=== PATIENT | female | born 1985 | race Caucasian/White ===

== ENCOUNTER 2018-04-15 18:37 | Observation (INO) ==
[2018-04-15] MEDS ORDERED: ceFAZolin 1,000 MG in Water for inj. (sterile) 20 ML 10 ML IVP ONE (19:51)
--- NOTE | 2018-04-15 20:13 | Emergency Department Note ---
Disposition Disposition: Admitted As Inpatient Psych HPI - General Chief Complaint: ED Psychiatric Symptoms Stated Complaint: SI/Back/head/knee pain Time Seen by Provider: 04/15/18 19:46 Source: patient Mode of arrival: ambulatory Limitations: no limitations Nursing Notes Reviewed: Yes Vital Signs Reviewed: Yes - Related Data Home Medications Medication Instructions Recorded Confirmed Lisinopril 10 mg PO DAILY 02/13/18 02/22/18 Gabapentin [Neurontin] 800 mg PO TID 02/22/18 02/22/18 Ibuprofen 600 mg PO TID 02/22/18 02/22/18 Quetiapine Fumarate 200 mg PO HS 02/22/18 02/22/18 RisperiDONE 0.25 mg PO QID 02/22/18 02/22/18 Sertraline 150 mg ORAL RINSE DAILY 02/22/18 02/22/18 Previous Rx's Medication Instructions Recorded Amoxicillin 875 mg PO BID #14 tablet 02/22/18 metroNIDAZOLE [Metronidazole] 500 mg PO BID 7 Days #14 tablet 02/22/18 NALOXONE 4 MG Nasal [place] [Narcan] 4 mg NS AD #2 sprays 04/15/18 Allergies Allergy/AdvReac Type Severity Reaction Status Date / Time No Known Allergies Allergy Verified 02/22/18 04:20 Past Medical History - Past Medical History Medical history: Reports: hypertension, seizures Surgical history: Reports: non-contributory, , other Psychiatric history: Reports: anxiety, depression, prior suicide attempt, previous psychiatric hospitalization 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 PATIENT SEEN BY DR. ARRINGTON Vital Signs Temperature 98.2 F 04/15/18 19:27 Pulse Rate 86 04/15/18 19:27 Respiratory Rate 18 04/15/18 19:27 Blood Pressure 150/78 04/15/18 19:27 O2 Sat by Pulse Oximetry 96 04/15/18 19:27 Temperature 97.5 F L 04/16/18 03:55 Pulse Rate 62 04/16/18 03:55 Respiratory Rate 15 04/16/18 03:55 Blood Pressure 124/84 04/16/18 03:55 O2 Sat by Pulse Oximetry 98 04/16/18 02:51 Oxygen Delivery Oxygen Delivery Room Air Psych - Lab Data Result diagrams: 04/15/18 20:08 04/15/18 20:08 Lab Results 04/15/18 04/15/18 04/15/18 Range/Units 20:02 20:02 20:02 WBC (4.3-11.1) K/mcL RBC (3.82-4.97) M/mcL Hgb (11.5-15.4) g/dL Hct (35.3-44.9) % MCV (83.0-100.0) fL MCH (28.0-33.3) pg MCHC (31.6-35.5) g/dL RDW (11.5-14.5) % Plt Count (140-400) K/mcL MPV (9.4-12.4) fL Immature Gran % (0-4) % Seg Neutrophils % % Lymphocytes % % Monocytes % % Eosinophils % % Basophils % % Neutrophils # (1.6-8.9) K/mcL Lymphocytes # (0.6-4.6) K/mcL Monocytes # (0.0-1.3) K/mcL Eosinophils # (0.0-0.6) K/mcL Basophils # (0.0-0.2) K/mcL Sodium (136-145) mEq/L Potassium (3.5-5.1) mEq/L Chloride (98-107) mEq/L Carbon Dioxide (23-29) mEq/L BUN (6-20) mg/dL Creatinine (0.60-1.20) mg/dL Est GFR ( Amer) (> 60) Est GFR (Non-Af Amer) (> 60) BUN/Creatinine Ratio (6-26) Glucose (70-105) mg/dL Calculated Osmolality (280-300) Calcium (8.6-10.3) mg/dL Urine Color Dark Yellow (Yellow) Urine Clarity Hazy A (Clear) Urine pH 6.0 (5.0-8.0) pH Units Ur Specific [place] > 1.030 H (1.010-1.025) Urine Protein Trace (Neg-Trace) mg/dL Urine Glucose (UA) Normal (Normal) mg/dL Urine Ketones Negative (Negative) mg/dL Urine Blood Negative (Negative) Urine Nitrite Negative (Negative) Urine Bilirubin Moderate H (Negative) Urine Urobilinogen 2.0 H (Normal) mg/dL Ur Leukocyte Esterase Small H (Negative) Urine Microscopic RBC 0-3 (0-3) per hpf Urine Microscopic WBC 5-15 H (0-3) per hpf Ur Squamous Epith Cells Many H (None-Few) per lpf Urine Bacteria Few (None-Few) per hpf Hyaline Casts None Seen (None-Few) per lpf Urine Mucus Few (Few) Urine Test Negative (Negative) Salicylates (15.0-30.0) mg/dL Urine Opiates Screen Negative (Gsfbzm=185) ng/mL Acetaminophen (10-20) mcg/mL Ur Barbiturates Screen Negative (Jamytt=535) ng/mL Ur Phencyclidine Scrn Negative (Cutoff=25) ng/mL Ur Amphetamines Screen Positive H (Jdxlux=0774) ng/mL U Benzodiazepines Scrn Negative (Jcgdyd=227) ng/mL Urine Cocaine Screen Negative (Cutoff= 300) ng/mL U Marijuana (THC) Screen Negative (Cutoff = 50) ng/mL Ethyl Alcohol (Less than 10) mg/dL 04/15/18 04/15/18 Range/Units 20:08 20:08 WBC 11.1 (4.3-11.1) K/mcL RBC 4.40 (3.82-4.97) M/mcL Hgb 14.2 (11.5-15.4) g/dL Hct 40.5 (35.3-44.9) % MCV 92.0 (83.0-100.0) fL MCH 32.3 (28.0-33.3) pg MCHC 35.1 (31.6-35.5) g/dL RDW 12.8 (11.5-14.5) % Plt Count 132 L (140-400) K/mcL MPV 12.7 H (9.4-12.4) fL Immature Gran % 0.2 (0-4) % Seg Neutrophils % 50.4 % Lymphocytes % 41.3 % Monocytes % 5.3 % Eosinophils % 2.3 % Basophils % 0.5 % Neutrophils # 5.6 (1.6-8.9) K/mcL Lymphocytes # 4.6 (0.6-4.6) K/mcL Monocytes # 0.6 (0.0-1.3) K/mcL Eosinophils # 0.3 (0.0-0.6) K/mcL Basophils # 0.1 (0.0-0.2) K/mcL Sodium 140 (136-145) mEq/L Potassium 3.4 L (3.5-5.1) mEq/L Chloride 106 (98-107) mEq/L Carbon Dioxide 24 (23-29) mEq/L BUN 13 (6-20) mg/dL Creatinine 0.68 (0.60-1.20) mg/dL Est GFR ( Amer) > 60 (> 60) Est GFR (Non-Af Amer) > 60 (> 60) BUN/Creatinine Ratio 19 (6-26) Glucose 134 H (70-105) mg/dL Calculated Osmolality 292 (280-300) Calcium 9.7 (8.6-10.3) mg/dL Urine Color (Yellow) Urine Clarity (Clear) Urine pH (5.0-8.0) pH Units Ur Specific [place] (1.010-1.025) Urine Protein (Neg-Trace) mg/dL Urine Glucose (UA) (Normal) mg/dL Urine Ketones (Negative) mg/dL Urine Blood (Negative) Urine Nitrite (Negative) Urine Bilirubin (Negative) Urine Urobilinogen (Normal) mg/dL Ur Leukocyte Esterase (Negative) Urine Microscopic RBC (0-3) per hpf Urine Microscopic WBC (0-3) per hpf Ur Squamous Epith Cells (None-Few) per lpf Urine Bacteria (None-Few) per hpf Hyaline Casts (None-Few) per lpf Urine Mucus (Few) Urine Test (Negative) Salicylates < 2.5 L (15.0-30.0) mg/dL Urine Opiates Screen (Lprcil=139) ng/mL Acetaminophen < 10 L (10-20) mcg/mL Ur Barbiturates Screen (Gpeahb=025) ng/mL Ur Phencyclidine Scrn (Cutoff=25) ng/mL Ur Amphetamines Screen (Qqhywp=1507) ng/mL U Benzodiazepines Scrn (Zzqlcs=311) ng/mL Urine Cocaine Screen (Cutoff= 300) ng/mL U Marijuana (THC) Screen (Cutoff = 50) ng/mL Ethyl Alcohol < 10 (Less than 10) mg/dL Psychiatric Medical Clearance - Medical Clearance Checklist Medical History: No Social History Section defined Current Vitals: Last Vital Signs Temp 97.5 F L 04/16/18 03:55 Pulse 62 04/16/18 03:55 Resp 15 04/16/18 03:55 BP 124/84 04/16/18 03:55 Pulse Ox 98 04/16/18 02:51 Psychiatric Lab Panel: Drug Levels and Toxicity 04/15/18 04/15/18 20:02 20:08 Urine Opiates Screen Negative Acetaminophen < 10 L Ur Barbiturates Screen Negative Ur Phencyclidine Scrn Negative Ur Amphetamines Screen Positive H U Benzodiazepines Scrn Negative Urine Cocaine Screen Negative U Marijuana (THC) Screen Negative Ethyl Alcohol < 10 Abnormal Labs: Abnormal lab results Plt Count 132 K/mcL (140-400) L 04/15/18 20:08 MPV 12.7 fL (9.4-12.4) H 04/15/18 20:08 Potassium 3.4 mEq/L (3.5-5.1) L 04/15/18 20:08 Glucose 134 mg/dL (70-105) H 04/15/18 20:08 Urine Clarity Hazy (Clear) A 04/15/18 20:02 Ur Specific [place] > 1.030 (1.010-1.025) H 04/15/18 20:02 Urine Bilirubin Moderate (Negative) H 04/15/18 20:02 Urine Urobilinogen 2.0 mg/dL (Normal) H 04/15/18 20:02 Ur Leukocyte Esterase Small (Negative) H 04/15/18 20:02 Urine Microscopic WBC 5-15 per hpf (0-3) H 04/15/18 20:02 Ur Squamous Epith Cells Many per lpf (None-Few) H 04/15/18 20:02 Salicylates < 2.5 mg/dL (15.0-30.0) L 04/15/18 20:08 Acetaminophen < 10 mcg/mL (10-20) L 04/15/18 20:08 Ur Amphetamines Screen Positive ng/mL (Ecxidt=9036) H 04/15/18 20:02 Statement of Medical Clearance: I have evaluated the patient, reviewed diagnostic information, and certify that the patient's medical condition is sufficiently stable that transfer to the psychiatric unit does not pose a significant risk of deterioration.
[2018-04-15 20:26] LABS: Bilirubin,Urine Moderate (Negative); Blood,Urine Negative (Negative); Glucose,Urine (UA) Normal (Normal); Ketones,Urine Negative (Negative); Leukocyte Esterase,Urine Small (Negative); Nitrite,Urine Negative (Negative); Protein,Urine Trace mg/dL (Neg-Trace); Specific Gravity,Urine > 1.030 (1.010-1.025)
[2018-04-15 20:32] LABS: Bacteria,Urine Few per hpf (None-Few); Hyaline Casts,Urine None Seen per lpf (None-Few); RBC,Urine 0-3 per hpf (0-3); Squamous Epithelial Cell,Urine Many per lpf (None-Few)
[2018-04-15 20:34] LABS: Amphetamine Screen,Urine Positive ng/mL (Cutoff=1000); Barbiturate Screen,Urine Negative ng/mL (Cutoff=200); Benzodiazepines Screen,Urine Negative ng/mL (Cutoff=200); Cannabinoid Screen,Urine Negative ng/mL (Cutoff = 50); Cocaine Screen,Urine Negative ng/mL (Cutoff= 300); Opiate Screen,Urine Negative ng/mL (Cutoff=300); Phencyclidine Screen,Urine Negative ng/mL (Cutoff=25)
[2018-04-15 20:37] LABS: Basophils # 0.1 K/mcL (0.0-0.2); Basophils % 0.5 %; Eosinophils # 0.3 K/mcL (0.0-0.6); Eosinophils % 2.3 %; Hematocrit 40.5 % (35.3-44.9); Hemoglobin 14.2 g/dL (11.5-15.4); Immature Granulocytes % 0.2 % (0-4); Lymphocytes # 4.6 K/mcL (0.6-4.6); Lymphocytes % 41.3 %; Mean Corpuscular HGB Conc 35.1 g/dL (31.6-35.5); Mean Corpuscular Hemoglobin 32.3 pg (28.0-33.3); Mean Platelet Volume 12.7 fL (9.4-12.4); Monocytes # 0.6 K/mcL (0.0-1.3); Monocytes % 5.3 %; Neutrophils # 5.6 K/mcL (1.6-8.9); Platelet Count 132 K/mcL (140-400); Red Cell Distribution Width 12.8 % (11.5-14.5); Segmented Neutrophils % 50.4 %
[2018-04-15 20:46] LABS: Clarity,Urine Hazy (Clear); Color,Urine Dark Yellow (Yellow)
[2018-04-15 20:57] LABS: Acetaminophen < 10 mcg/mL (10-20); BUN/Creatinine Ratio 19 (6-26); Blood Urea Nitrogen 13 mg/dL (6-20); Calcium 9.7 mg/dL (8.6-10.3); Carbon Dioxide 24 mEq/L (23-29); Chloride 106 mEq/L (98-107); Ethanol < 10 mg/dL (Less than 10); Glucose 134 mg/dL (70-105); Osmolality,Calculated 292 (280-300); Potassium 3.4 mEq/L (3.5-5.1); Salicylate < 2.5 mg/dL (15.0-30.0); Sodium 140 mEq/L (136-145); eGFR For African Americans > 60 (> 60); eGFR For Non-African Americans > 60 (> 60)
[2018-04-15 21:00] LABS: Mucus,Urine Few (Few)
[2018-04-15] MEDS: 0.9 % Sodium Chloride 1,000 ML IVC SCH (22:00)
[2018-04-16] MEDS ORDERED: 0.9 % Sodium Chloride 1,000 ML IVC SCH (01:45)
[2018-04-16] MEDS ORDERED: Naloxone 0.4 MG/ML INJ IVP PRN (02:33)
--- NOTE | 2018-04-16 02:36 | Internal Med History&Physical ---
Date of Encounter: 04/16/18 Time of Encounter: 02:34 Internal Medicine - H&P: HPI Chief complaint: Multiple complaints Admitted From: Emergency Dept Plans for Post Hospital Care: Home History of present illness: Ms. Kilgore is a 32 year old female with history of substance abuse, anxiety/ PTSD/schizophrenia, who presented to the ED initially on her own in a lethargic condition stating she is homeless on [address] and is suicidal. The patient is not reporting this to me however she did report it to the ED staff was pink slipped. Throughout her stay in the ED she was very lethargic and was unable to carry on a full conversation. She would wake up for a couple seconds and sleep. The patient stated that for the last couple days she has been homeless and has been trying to get sober and that there is a man "keeps on messing with her". She denies using any drugs but her UDS showed meth. She fell a few days ago and has a few abrasions. She had erythema throughout her extremities but no reported fever. The patient has had sun exposure the last couple of days as she is homeless. labs in the ED showed hypokalemia. Imaging studies including CT head, CT cervical spine, knee xray, CXR were unremarkable. When I met the patient, she was starting to show signs of waking up, however, she was still lethargic and unable to carry on with a conversation despite my repeated efforts to redirect her. She is hemodynamiclaly stable. Past Med Surg Social Fam HX - Past Medical History Medical history: hypertension, seizures Psychiatric history: anxiety, depression, prior suicide attempt, previous psychiatric hospitalization - Past Surgical History Surgical History: non-contributory, , other - Social History Smoking Status: Current every day smoker Smokeless Tobacco Status: No Alcohol use: none Drug use: other Internal Medicine - H&P: Meds Lisinopril 10 mg PO DAILY 02/13/18 [History] Amoxicillin 875 mg PO BID #14 tablet 02/22/18 [Rx] Gabapentin [Neurontin] 800 mg PO TID 02/22/18 [History] Ibuprofen 600 mg PO TID 02/22/18 [History] Quetiapine Fumarate 200 mg PO HS 02/22/18 [History] RisperiDONE 0.25 mg PO QID 02/22/18 [History] Sertraline 150 mg ORAL RINSE DAILY 02/22/18 [History] metroNIDAZOLE [Metronidazole] 500 mg PO BID 7 Days #14 tablet 02/22/18 [Rx] NALOXONE 4 MG Nasal [place] [Narcan] 4 mg NS AD #2 sprays 04/15/18 [Rx] 3 Allergy/AdvReac Type Severity Reaction Status Date / Time No Known Allergies Allergy Verified 02/22/18 04:20 ROS unobtainable: due to mental status - Constitutional Vitals: Temp Pulse Resp BP Pulse Ox 98.2 F 59 20 127/75 99 04/15/18 19:27 04/16/18 01:24 04/16/18 01:24 04/16/18 01:24 04/16/18 01:24 Exam: GEN: Lethargic HEENT: AT, NC, No cyanosis, oral mucosa is moist, No JVD Lymphatics: No lymphadenoapthy Eyes: Extrocular muscles intact, anicteric CVS:RRR. S1, S2, No m/r/g RESP: CTAB ABD: Soft, NT, ND, +BS EXT: No edema, multiple signs of skin picking on her extremities. Patient has a couple of scabs on her kneecaps bilaterally. 2+ DP NEURO: Patient is lethargic and is unable to wake up fully. Her pupils are equal and reactive. She moves her extremities throughout spontaneously. Psych: Cooperative, Not anxious or depressed Internal Med - H&P Results - Labs CBC & Chem 7: 04/15/18 20:08 04/15/18 20:08 - Assessment and plan (1) Encephalopathy Current Visit: Yes Status: Acute Assessment and plan: likely due to meth. Will give her time to wake up. CT head negative. (2) Suicidal ideation Current Visit: No Status: Acute Assessment and plan: c/s psych. She denied suicidal ideations to me but apparently reported it to the ED staff (3) Polysubstance dependence Current Visit: No Status: Acute Assessment and plan: social consult. (4) DVT prophylaxis Current Visit: Yes Status: Acute Assessment and plan: heparin SQ - Time Spent With Patient Total time spent is greater than 50% in coordination of care (as documented) at patient's floor/unit and/or counseling patient:
[2018-04-16] MEDS: 0.9 % Sodium Chloride 1,000 ML IVC SCH ×3 (04:17→18:31)
[2018-04-16] MEDS: *HR* Heparin 5,000 UNIT/ML VIAL SQ SCH ×3 (05:19→22:40)
--- NOTE | 2018-04-16 05:46 | Emergency Department Note ---
Disposition Clinical Impression: Drug-induced psychotic disorder Qualifiers: Complication of substance-induced condition: with hallucinations Qualified Code (s): F19.951 - Other psychoactive substance use, unspecified with psychoactive substance-induced psychotic disorder with hallucinations Disposition: Home, Self-Care Condition: Good General Adult HPI - General Chief complaint: ED Psychiatric Symptoms Stated complaint: SI/Back/head/knee pain Time Seen by Provider: 04/15/18 19:46 Source: patient Limitations: no limitations Nursing Notes Reviewed: Yes Vital Signs Reviewed: Yes - History of Present Illness HPI Narrative: 32-year-old female presenting with concern for altered mental status and suicidal ideations. She also admits to drug use and recent senior care discharge. The patient had a fall today resulting in abrasions to her knees. She is ataxic and stuporous. She denies other drug abuse. She has no fever or chills. She has no cough or congestion. She has no objective signs of trauma beyond abrasions to her knees bilaterally and excoriated lesions on her left arm. General: No acute distress HEENT: Pupils equal and reactive to light, extraoccular muscle movement is normal, TMS are clear bilaterally. Heart: RRR, No murmor rub or gallop Lungs: lungs clear, no wheezing, rales or ronchi. ABD: SNT, no focal areas or tenderness, no guarding or rebound tenderness. Extremities: No cyanosis, clubbing or edema Neuro: CN 2-12 in tact, no focal deficit. strength 5/5. Patient is stuporous and ataxic Skin shows abrasion on the knees bilaterally. Patient log rolls without difficulty or pain Medical decision making Findings consistent with altered mental status from possible drug abuse or polypharmacy. Patient is cooperative however remains stuporous and ataxic and will require admission for mental status clearance. The patient will be placed on a medical hold pending medical status clearance as well as psychiatric evaluation as a patient did describe suicidal ideations without specific plan. 12 point review of systems is completed and is negative unless otherwise stated in my history of present illness Pain Scale: 0 - Related Data Home Medications Medication Instructions Recorded Confirmed Lisinopril 10 mg PO DAILY 02/13/18 02/22/18 Gabapentin [Neurontin] 800 mg PO TID 02/22/18 02/22/18 Ibuprofen 600 mg PO TID 02/22/18 02/22/18 Quetiapine Fumarate 200 mg PO HS 02/22/18 02/22/18 RisperiDONE 0.25 mg PO QID 02/22/18 02/22/18 Sertraline 150 mg ORAL RINSE DAILY 02/22/18 02/22/18 Previous Rx's Medication Instructions Recorded Amoxicillin 875 mg PO BID #14 tablet 02/22/18 metroNIDAZOLE [Metronidazole] 500 mg PO BID 7 Days #14 tablet 02/22/18 NALOXONE 4 MG Nasal [place] [Narcan] 4 mg NS AD #2 sprays 04/15/18 Allergies Allergy/AdvReac Type Severity Reaction Status Date / Time No Known Allergies Allergy Verified 02/22/18 04:20 Past Medical History - Past Medical History Medical history: Reports: hypertension, seizures Surgical history: Reports: non-contributory, , other Psychiatric history: Reports: anxiety, depression, prior suicide attempt, previous psychiatric hospitalization [employer]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 - Social History Smoking Status: Current every day smoker Smokeless Tobacco Status: No Alcohol use: Reports: none Drug use: Reports: other Physical Exam - General Limitations: no limitations General appearance: alert, in no apparent distress Course Vital Signs Temperature 98.2 F 04/15/18 19:27 Pulse Rate 86 04/15/18 19:27 Respiratory Rate 18 04/15/18 19:27 Blood Pressure 150/78 04/15/18 19:27 O2 Sat by Pulse Oximetry 96 04/15/18 19:27 Temperature 97.5 F L 04/16/18 03:55 Pulse Rate 62 04/16/18 03:55 Respiratory Rate 15 04/16/18 03:55 Blood Pressure 124/84 04/16/18 03:55 O2 Sat by Pulse Oximetry 98 04/16/18 02:51 Oxygen Delivery Oxygen Delivery Room Air Medical Decision Making - Lab Data Result diagrams: 04/15/18 20:08 04/15/18 20:08 Lab Results 04/15/18 04/15/18 04/15/18 Range/Units 20:02 20:02 20:02 WBC (4.3-11.1) K/mcL RBC (3.82-4.97) M/mcL Hgb (11.5-15.4) g/dL Hct (35.3-44.9) % MCV (83.0-100.0) fL MCH (28.0-33.3) pg MCHC (31.6-35.5) g/dL RDW (11.5-14.5) % Plt Count (140-400) K/mcL MPV (9.4-12.4) fL Immature Gran % (0-4) % Seg Neutrophils % % Lymphocytes % % Monocytes % % Eosinophils % % Basophils % % Neutrophils # (1.6-8.9) K/mcL Lymphocytes # (0.6-4.6) K/mcL Monocytes # (0.0-1.3) K/mcL Eosinophils # (0.0-0.6) K/mcL Basophils # (0.0-0.2) K/mcL Sodium (136-145) mEq/L Potassium (3.5-5.1) mEq/L Chloride (98-107) mEq/L Carbon Dioxide (23-29) mEq/L BUN (6-20) mg/dL Creatinine (0.60-1.20) mg/dL Est GFR ( Amer) (> 60) Est GFR (Non-Af Amer) (> 60) BUN/Creatinine Ratio (6-26) Glucose (70-105) mg/dL Calculated Osmolality (280-300) Calcium (8.6-10.3) mg/dL Urine Color Dark Yellow (Yellow) Urine Clarity Hazy A (Clear) Urine pH 6.0 (5.0-8.0) pH Units Ur Specific [place] > 1.030 H (1.010-1.025) Urine Protein Trace (Neg-Trace) mg/dL Urine Glucose (UA) Normal (Normal) mg/dL Urine Ketones Negative (Negative) mg/dL Urine Blood Negative (Negative) Urine Nitrite Negative (Negative) Urine Bilirubin Moderate H (Negative) Urine Urobilinogen 2.0 H (Normal) mg/dL Ur Leukocyte Esterase Small H (Negative) Urine Microscopic RBC 0-3 (0-3) per hpf Urine Microscopic WBC 5-15 H (0-3) per hpf Ur Squamous Epith Cells Many H (None-Few) per lpf Urine Bacteria Few (None-Few) per hpf Hyaline Casts None Seen (None-Few) per lpf Urine Mucus Few (Few) Urine Test Negative (Negative) Salicylates (15.0-30.0) mg/dL Urine Opiates Screen Negative (Ielzcx=485) ng/mL Acetaminophen (10-20) mcg/mL Ur Barbiturates Screen Negative (Xxjhed=106) ng/mL Ur Phencyclidine Scrn Negative (Cutoff=25) ng/mL Ur Amphetamines Screen Positive H (Rgijck=7861) ng/mL U Benzodiazepines Scrn Negative (Xchtzi=916) ng/mL Urine Cocaine Screen Negative (Cutoff= 300) ng/mL U Marijuana (THC) Screen Negative (Cutoff = 50) ng/mL Ethyl Alcohol (Less than 10) mg/dL 04/15/18 04/15/18 Range/Units 20:08 20:08 WBC 11.1 (4.3-11.1) K/mcL RBC 4.40 (3.82-4.97) M/mcL Hgb 14.2 (11.5-15.4) g/dL Hct 40.5 (35.3-44.9) % MCV 92.0 (83.0-100.0) fL MCH 32.3 (28.0-33.3) pg MCHC 35.1 (31.6-35.5) g/dL RDW 12.8 (11.5-14.5) % Plt Count 132 L (140-400) K/mcL MPV 12.7 H (9.4-12.4) fL Immature Gran % 0.2 (0-4) % Seg Neutrophils % 50.4 % Lymphocytes % 41.3 % Monocytes % 5.3 % Eosinophils % 2.3 % Basophils % 0.5 % Neutrophils # 5.6 (1.6-8.9) K/mcL Lymphocytes # 4.6 (0.6-4.6) K/mcL Monocytes # 0.6 (0.0-1.3) K/mcL Eosinophils # 0.3 (0.0-0.6) K/mcL Basophils # 0.1 (0.0-0.2) K/mcL Sodium 140 (136-145) mEq/L Potassium 3.4 L (3.5-5.1) mEq/L Chloride 106 (98-107) mEq/L Carbon Dioxide 24 (23-29) mEq/L BUN 13 (6-20) mg/dL Creatinine 0.68 (0.60-1.20) mg/dL Est GFR ( Amer) > 60 (> 60) Est GFR (Non-Af Amer) > 60 (> 60) BUN/Creatinine Ratio 19 (6-26) Glucose 134 H (70-105) mg/dL Calculated Osmolality 292 (280-300) Calcium 9.7 (8.6-10.3) mg/dL Urine Color (Yellow) Urine Clarity (Clear) Urine pH (5.0-8.0) pH Units Ur Specific [place] (1.010-1.025) Urine Protein (Neg-Trace) mg/dL Urine Glucose (UA) (Normal) mg/dL Urine Ketones (Negative) mg/dL Urine Blood (Negative) Urine Nitrite (Negative) Urine Bilirubin (Negative) Urine Urobilinogen (Normal) mg/dL Ur Leukocyte Esterase (Negative) Urine Microscopic RBC (0-3) per hpf Urine Microscopic WBC (0-3) per hpf Ur Squamous Epith Cells (None-Few) per lpf Urine Bacteria (None-Few) per hpf Hyaline Casts (None-Few) per lpf Urine Mucus (Few) Urine Test (Negative) Salicylates < 2.5 L (15.0-30.0) mg/dL Urine Opiates Screen (Uyvucn=426) ng/mL Acetaminophen < 10 L (10-20) mcg/mL Ur Barbiturates Screen (Urolmp=286) ng/mL Ur Phencyclidine Scrn (Cutoff=25) ng/mL Ur Amphetamines Screen (Ehoulm=7861) ng/mL U Benzodiazepines Scrn (Gkrmxo=668) ng/mL Urine Cocaine Screen (Cutoff= 300) ng/mL U Marijuana (THC) Screen (Cutoff = 50) ng/mL Ethyl Alcohol < 10 (Less than 10) mg/dL
[2018-04-16 06:30] LABS: Basophils # 0.1 K/mcL (0.0-0.2); Basophils % 0.7 %; Eosinophils # 0.2 K/mcL (0.0-0.6); Hematocrit 36.6 % (35.3-44.9); Immature Granulocytes % 0.3 % (0-4); Lymphocytes # 2.9 K/mcL (0.6-4.6); Lymphocytes % 41.7 %; Mean Corpuscular HGB Conc 34.4 g/dL (31.6-35.5); Mean Corpuscular Hemoglobin 31.3 pg (28.0-33.3); Mean Platelet Volume 12.5 fL (9.4-12.4); Monocytes # 0.5 K/mcL (0.0-1.3); Monocytes % 6.8 %; Neutrophils # 3.4 K/mcL (1.6-8.9); Platelet Count 134 K/mcL (140-400); Red Blood Count 4.02 M/mcL (3.82-4.97); Red Cell Distribution Width 12.8 % (11.5-14.5); Segmented Neutrophils % 47.5 %
[2018-04-16 06:31] LABS: Hemoglobin 12.6 g/dL (11.5-15.4)
[2018-04-16 06:50] LABS: BUN/Creatinine Ratio 17 (6-26); Blood Urea Nitrogen 10 mg/dL (6-20); Calcium 8.9 mg/dL (8.6-10.3); Carbon Dioxide 25 mEq/L (23-29); Chloride 108 mEq/L (98-107); Glucose 145 mg/dL (70-105); Magnesium 1.7 mg/dL (1.6-2.6); Osmolality,Calculated 294 (280-300); Potassium 3.5 mEq/L (3.5-5.1); Sodium 141 mEq/L (136-145); eGFR For African Americans > 60 (> 60); eGFR For Non-African Americans > 60 (> 60)
[2018-04-16] MEDS: Acetaminophen 325 MG TABLET PO PRN ×2 (11:07→22:44)
[2018-04-16] MEDS ORDERED: Haloperidol Lactate 5 MG/ML VIAL IVP ONE (12:22)
--- NOTE | 2018-04-16 16:45 | Consult Note ---
Date of Encounter: 04/16/18 Time of Encounter: 15:45 Assessment & Recommendation (1) Suicidal ideation Current visit: No Status: Acute (2) Mood disorder Current visit: No Status: Acute (3) Polysubstance dependence Current visit: No Status: Acute History of Present Illness Requesting Physician: Darrion Rodríguez Reason for consult: SI History of present illness: Ms. Kilgore is a 32 year old female . The patient was interviewed briefly but she was sedated and unable to provide much information. The patient reports that she has lived on the streets that she has been receiving Suboxone once a week and that she denies suicidal ideation. Nonetheless the patient's presentation is consistent with more significant and concerning events. The patient has required Haldol and was sedated. She is on a pink slip. And I would like to consider her for hospitalization on 1 a when stable CC: Darrion Rodríguez Past Med Surg Social Fam HX - Past Medical History Medical history: hypertension, seizures - Past Surgical History Surgical History: non-contributory, , other - Social History Smoking Status: Current every day smoker Smokeless Tobacco Status: No Alcohol use: none Drug use: other Medications & Allergies Gabapentin [Neurontin] 800 mg PO TID 02/22/18 [History] Buprenorphine HCl/Naloxone HCl [Buprenorphin-Naloxon 8-2 mg Sl] 1.5 tab SL DAILY 04/16/18 [History] Ibuprofen [Ibu] 600 mg PO TID 04/16/18 [History] Lisinopril [Zestril] 10 mg PO DAILY 04/16/18 [History] Quetiapine Fumarate [Seroquel] 200 mg PO HS 04/16/18 [History] Sertraline [Zoloft] 150 mg PO DAILY 04/16/18 [History] risperiDONE [RisperDAL] 0.25 mg PO QID 04/16/18 [History] 3 Allergy/AdvReac Type Severity Reaction Status Date / Time No Known Allergies Allergy Verified 02/22/18 04:20 Psychiatry Exam - Constitutional Vitals: Temp Pulse Resp BP Pulse Ox 98 F 67 15 106/68 98 04/16/18 11:00 04/16/18 11:00 04/16/18 11:00 04/16/18 11:00 04/16/18 09:10 General appearance: age & developmentally appropriate - Psychiatric Patient Orientation: Yes Person, Yes Place Level of alertness: Sedated, Follows commands Psychomotor activity: Slowed Eye Contact: Avoids Eye Contact Affect description: congruent with mood Speech Volume: Normal Speech pattern: mumbled, non-verbal Language & Vocabulary: consistent with education Thought Content: Yes Suicidal ideation Attention Span Ability: Unable to Sustain Attention Memory Description: Remote Impaired Judgment: Limited Insight: Minimal Results - Labs Labs: Laboratory Last Values WBC 7.1 K/mcL (4.3-11.1) 04/16/18 05:42 RBC 4.02 M/mcL (3.82-4.97) 04/16/18 05:42 Hgb 12.6 g/dL (11.5-15.4) D 04/16/18 05:42 Hct 36.6 % (35.3-44.9) 04/16/18 05:42 MCV 91.0 fL (83.0-100.0) 04/16/18 05:42 MCH 31.3 pg (28.0-33.3) 04/16/18 05:42 MCHC 34.4 g/dL (31.6-35.5) 04/16/18 05:42 RDW 12.8 % (11.5-14.5) 04/16/18 05:42 Plt Count 134 K/mcL (140-400) L 04/16/18 05:42 MPV 12.5 fL (9.4-12.4) H 04/16/18 05:42 Immature Gran % 0.3 % (0-4) 04/16/18 05:42 Seg Neutrophils % 47.5 % 04/16/18 05:42 Lymphocytes % 41.7 % 04/16/18 05:42 Monocytes % 6.8 % 04/16/18 05:42 Eosinophils % 3.0 % 04/16/18 05:42 Basophils % 0.7 % 04/16/18 05:42 Neutrophils # 3.4 K/mcL (1.6-8.9) 04/16/18 05:42 Lymphocytes # 2.9 K/mcL (0.6-4.6) 04/16/18 05:42 Monocytes # 0.5 K/mcL (0.0-1.3) 04/16/18 05:42 Eosinophils # 0.2 K/mcL (0.0-0.6) 04/16/18 05:42 Basophils # 0.1 K/mcL (0.0-0.2) 04/16/18 05:42 Sodium 141 mEq/L (136-145) 04/16/18 05:42 Potassium 3.5 mEq/L (3.5-5.1) 04/16/18 05:42 Chloride 108 mEq/L (98-107) H 04/16/18 05:42 Carbon Dioxide 25 mEq/L (23-29) 04/16/18 05:42 BUN 10 mg/dL (6-20) 04/16/18 05:42 Creatinine 0.58 mg/dL (0.60-1.20) L 04/16/18 05:42 Est GFR ( Amer) > 60 (> 60) 04/16/18 05:42 Est GFR (Non-Af Amer) > 60 (> 60) 04/16/18 05:42 BUN/Creatinine Ratio 17 (6-26) 04/16/18 05:42 Glucose 145 mg/dL (70-105) H 04/16/18 05:42 Calculated Osmolality 294 (280-300) 04/16/18 05:42 Calcium 8.9 mg/dL (8.6-10.3) 04/16/18 05:42 Magnesium 1.7 mg/dL (1.6-2.6) 04/16/18 05:42 Urine Color Dark Yellow (Yellow) 04/15/18 20:02 Urine Clarity Hazy (Clear) A 04/15/18 20:02 Urine pH 6.0 pH Units (5.0-8.0) 04/15/18 20:02 Ur Specific [place] > 1.030 (1.010-1.025) H 04/15/18 20:02 Urine Protein Trace mg/dL (Neg-Trace) 04/15/18 20:02 Urine Glucose (UA) Normal mg/dL (Normal) 04/15/18 20:02 Urine Ketones Negative mg/dL (Negative) 04/15/18 20:02 Urine Blood Negative (Negative) 04/15/18 20:02 Urine Nitrite Negative (Negative) 04/15/18 20:02 Urine Bilirubin Moderate (Negative) H 04/15/18 20:02 Urine Urobilinogen 2.0 mg/dL (Normal) H 04/15/18 20:02 Ur Leukocyte Esterase Small (Negative) H 04/15/18 20:02 Urine Microscopic RBC 0-3 per hpf (0-3) 04/15/18 20:02 Urine Microscopic WBC 5-15 per hpf (0-3) H 04/15/18 20:02 Ur Squamous Epith Cells Many per lpf (None-Few) H 04/15/18 20:02 Urine Bacteria Few per hpf (None-Few) 04/15/18 20:02 Hyaline Casts None Seen per lpf (None-Few) 04/15/18 20:02 Urine Mucus Few (Few) 04/15/18 20:02 Urine Test Negative (Negative) 04/15/18 20:02 Salicylates < 2.5 mg/dL (15.0-30.0) L 04/15/18 20:08 Urine Opiates Screen Negative ng/mL (Dfxkps=801) 04/15/18 20:02 Acetaminophen < 10 mcg/mL (10-20) L 04/15/18 20:08 Ur Barbiturates Screen Negative ng/mL (Ahrxqo=751) 04/15/18 20:02 Ur Phencyclidine Scrn Negative ng/mL (Cutoff=25) 04/15/18 20:02 Ur Amphetamines Screen Positive ng/mL (Lkxdgt=6452) H 04/15/18 20:02 U Benzodiazepines Scrn Negative ng/mL (Plcize=125) 04/15/18 20:02 Urine Cocaine Screen Negative ng/mL (Cutoff= 300) 04/15/18 20:02 U Marijuana (THC) Screen Negative ng/mL (Cutoff = 50) 04/15/18 20:02 Ethyl Alcohol < 10 mg/dL (Less than 10) 04/15/18 20:08 Consult Discharge Plan - Plan Referrals: NONE,PCP [Primary Care Provider] -
[2018-04-16] MEDS: Doxycycline 100 MG in 0.9 % Sodium Chloride Mini Bag 100 ML IVPB SCH (17:26)
[2018-04-16] MEDS: Gabapentin 400 MG CAPSULE PO SCH ×2 (17:26→22:31)
[2018-04-16] MEDS: risperiDONE 0.25 MG TABLET PO SCH ×3 (17:26→22:31)
--- NOTE | 2018-04-16 18:50 | Event Note ---
Date of Encounter: 04/16/18 Time of Encounter: 11:00 Patient evaluated by nocturnalist earlier this morning and also by myself Patient is medically stable to be transferred to the psychiatry service as primary to the psychiatry inpatient unit
[2018-04-17] MEDS: 0.9 % Sodium Chloride 1,000 ML IVC SCH ×2 (02:47→14:34)
[2018-04-17] MEDS: Doxycycline 100 MG in 0.9 % Sodium Chloride Mini Bag 100 ML IVPB SCH (05:26)
[2018-04-17] MEDS: *HR* Heparin 5,000 UNIT/ML VIAL SQ SCH ×2 (05:27→14:36)
[2018-04-17 09:37] VITALS: BP 129/79
[2018-04-17] MEDS: risperiDONE 0.25 MG TABLET PO SCH ×2 (09:40→14:36)
[2018-04-17] MEDS: Gabapentin 400 MG CAPSULE PO SCH ×2 (09:40→16:15)
--- NOTE | 2018-04-17 15:56 | Discharge Summary ---
Date of Encounter: 04/17/18 Time of Encounter: 11:00 - Discharge Diagnosis (1) Suicidal ideation Priority: Primary Status: Acute (2) Polysubstance dependence Priority: Primary Status: Acute (3) Encephalopathy Priority: Secondary Status: Acute Hospital course: Patient is a 32-year-old female with past medical history significant for substance abuse, anxiety/PTSD/schizophrenia, who presented to the ER initially on her own in a lethargic condition stating she is homeless on the street and is suicidal. In the ER, patient was also found to be positive for methamphetamine. She was admitted to medical surgical floor for further management and psychiatry was consulted. During patients hospital stay she was noted to have sun burn with questionable cellulitis so doxycycline was started. Areas of erythematous have improved so we will continue doxycycline. Patient is medically stable and will be now be transferred to the inpatient psychiatry unit for psychiatry to become primary and to manage psychiatric care. - Time Spent with Patient Total time spent providing and/or coordinating discharge services: Less than 30 minutes - Discharge Medications Home Medications: Gabapentin [Neurontin] 800 mg PO TID 02/22/18 [History] Buprenorphine HCl/Naloxone HCl [Buprenorphin-Naloxon 8-2 mg Sl] 1.5 tab SL DAILY 04/16/18 [History] Ibuprofen [Ibu] 600 mg PO TID 04/16/18 [History] Lisinopril [Zestril] 10 mg PO DAILY 04/16/18 [History] Quetiapine Fumarate [Seroquel] 200 mg PO HS 04/16/18 [History] Sertraline [Zoloft] 150 mg PO DAILY 04/16/18 [History] risperiDONE [RisperDAL] 0.25 mg PO QID 04/16/18 [History] Doxycycline 100 mg PO BID capsule 04/17/18 [Rx] Quetiapine Fumarate [Seroquel] 200 mg PO HS tablet 04/17/18 [Rx] Allergies/Adverse Reactions: 3 Allergy/AdvReac Type Severity Reaction Status Date / Time No Known Allergies Allergy Verified 02/22/18 04:20 Date of admission: 04/16/18 01:41 Primary care physician: PCP NONE Consults: 04/16/18 02:32 Consult to Librarian Special Collections [CONS] Routine Reason for SW Consult: substance abuse/homeless - Constitutional Vitals: Temp Pulse Resp BP Pulse Ox 98.7 F 71 16 129/79 96 04/17/18 09:00 04/17/18 09:00 04/17/18 09:00 04/17/18 09:00 04/17/18 09:44 General appearance: Present: A&O X 3 - Respiratory Respiratory exam: Present: CTAB. Absent: accessory muscle use, rales, rhonchi, wheezes - Cardiovascular Cardiovascular exam: Present: RRR, +S1, +S2. Absent: diastolic murmur, gallop, rubs, systolic murmur - Patient Status Disposition: Transfer Psychiatric Hosp Condition: Good - Discharge Instructions Follow Up With: NONE,PCP [Primary Care Provider] -
[2018-04-17] MEDS ORDERED: Doxycycline 100 MG CAPSULE PO SCH (21:00)
== END 2018-04-17 16:31 ==
LOC: 2ANU 18:37 → EMEROO 18:37 → SUATTDRO 04-16 01:41 → 2ANU 04-16 02:37
PROVIDERS: ADMIT Family Medicine; ATTEND Hospitalist

== ENCOUNTER 2018-05-31 21:40 | Inpatient (IN) ==
[2018-05-31 22:21] LABS: Basophils # 0.1 K/mcL (0.0-0.2); Basophils % 0.9 %; Eosinophils # 0.3 K/mcL (0.0-0.6); Eosinophils % 2.2 %; Hematocrit 39.6 % (35.3-44.9); Hemoglobin 13.8 g/dL (11.5-15.4); Immature Granulocytes % 0.3 % (0-4); Lymphocytes # 3.8 K/mcL (0.6-4.6); Lymphocytes % 33.1 %; Mean Corpuscular HGB Conc 34.8 g/dL (31.6-35.5); Mean Corpuscular Hemoglobin 31.5 pg (28.0-33.3); Mean Corpuscular Volume 90.4 fL (83.0-100.0); Mean Platelet Volume 12.3 fL (9.4-12.4); Monocytes # 0.8 K/mcL (0.0-1.3); Monocytes % 6.7 %; Neutrophils # 6.6 K/mcL (1.6-8.9); Platelet Count 125 K/mcL (140-400); Red Blood Count 4.38 M/mcL (3.82-4.97); Red Cell Distribution Width 13.3 % (11.5-14.5); Segmented Neutrophils % 56.8 %
[2018-05-31 22:41] LABS: Acetaminophen < 10 mcg/mL (10-20); BUN/Creatinine Ratio 24 (6-26); Blood Urea Nitrogen 14 mg/dL (6-20); Calcium 9.4 mg/dL (8.6-10.3); Carbon Dioxide 23 mEq/L (23-29); Chloride 107 mEq/L (98-107); Ethanol < 10 mg/dL (Less than 10); Glucose 112 mg/dL (70-105); Osmolality,Calculated 285 (280-300); Potassium 4.1 mEq/L (3.5-5.1); Salicylate < 2.5 mg/dL (15.0-30.0); Sodium 137 mEq/L (136-145); eGFR For African Americans > 60 (> 60); eGFR For Non-African Americans > 60 (> 60)
[2018-05-31 22:49] LABS: Amphetamine Screen,Urine Positive ng/mL (Cutoff=1000); Barbiturate Screen,Urine Negative ng/mL (Cutoff=200); Benzodiazepines Screen,Urine Negative ng/mL (Cutoff=200); Cannabinoid Screen,Urine Negative ng/mL (Cutoff = 50); Cocaine Screen,Urine Negative ng/mL (Cutoff= 300); Opiate Screen,Urine Positive ng/mL (Cutoff=300); Phencyclidine Screen,Urine Negative ng/mL (Cutoff=25)
[2018-05-31 22:50] LABS: Bilirubin,Urine Small (Negative); Blood,Urine Large (Negative); Glucose,Urine (UA) Normal (Normal); Ketones,Urine Trace mg/dL (Negative); Leukocyte Esterase,Urine Small (Negative); Nitrite,Urine Negative (Negative); Protein,Urine 100 mg/dL (Neg-Trace); Specific Gravity,Urine 1.023 (1.010-1.025)
[2018-05-31 22:55] LABS: Bacteria,Urine Few per hpf (None-Few); Hyaline Casts,Urine Few per lpf (None-Few); Squamous Epithelial Cell,Urine Many per lpf (None-Few); WBC,Urine 30-50 per hpf (0-3)
[2018-05-31 23:01] LABS: Clarity,Urine Slightly Hazy (Clear); Color,Urine Dark Yellow (Yellow)
[2018-05-31] MEDS ORDERED: cephALEXin 250 MG CAPSULE PO STA (23:28)
--- NOTE | 2018-05-31 23:33 | Emergency Department Note ---
Disposition Clinical Impression: Suicidal ideation, Auditory hallucinations Headache Qualifiers: Headache type: unspecified Headache chronicity pattern: acute headache Intractability: not intractable Qualified Code(s): R51 - Headache Disposition: Admitted As Inpatient Condition: Good Referrals: NONE,PCP [Primary Care Provider] - Forms: ED Satisfaction Letter General Adult HPI - General Chief complaint: ED Psychiatric Symptoms Stated complaint: SI Time Seen by Provider: 05/31/18 22:54 Source: patient Limitations: no limitations Nursing Notes Reviewed: Yes Vital Signs Reviewed: Yes - History of Present Illness HPI Narrative: Patient presents for concern for SI as well as auditory hallucinations. Patient states that her medications of not been working. States that she hears voices that she knows. Not telling her anything specific. Patient has no specific SI plan. Patient states that she does have a headache at this time. Patient states sensitivity to lights and sounds. Pacer agitated and makes her psychiatric condition worse. Patient states she does have a history of headaches. Patient has not taken anything for this headache at this time. Patient does not have any neuro deficits. Patient's urine at bedside does look red. Patient is on her period and does have a pad in place at this time with blood per nurse. Pain Scale: 0 - Related Data Home Medications Medication Instructions Recorded Confirmed Buprenorphine HCl/Naloxone HCl 1.5 tab SL DAILY 04/16/18 04/18/18 [Buprenorphin-Naloxon 8-2 mg Sl] Ibuprofen [Ibu] 600 mg PO TID 04/16/18 04/18/18 Lisinopril [Zestril] 10 mg PO DAILY 04/16/18 04/18/18 Quetiapine Fumarate [Seroquel] 200 mg PO HS 04/16/18 04/18/18 Sertraline [Zoloft] 150 mg PO DAILY 04/16/18 04/18/18 risperiDONE [RisperDAL] 0.25 mg PO QID 04/16/18 04/18/18 Previous Rx's Medication Instructions Recorded Doxycycline 100 mg PO BID capsule 04/17/18 Quetiapine Fumarate [Seroquel] 200 mg PO HS tablet 04/17/18 Gabapentin [Neurontin] 800 mg PO TID #90 capsule 04/23/18 Allergies Allergy/AdvReac Type Severity Reaction Status Date / Time No Known Allergies Allergy Verified 05/31/18 21:47 Review of Systems: CONSTITUTIONAL: No weight loss, fever, chills, weakness or fatigue. HEENT: Eyes: No visual changes. Ears, Nose, Throat: No hearing loss, difficulty talking or unable to swallow. SKIN: No rash or itching. CARDIOVASCULAR: No chest pain, chest pressure or chest discomfort. No palpitations or edema. RESPIRATORY: No shortness of breath, cough or sputum. GASTROINTESTINAL: No anorexia, nausea, vomiting or diarrhea. No abdominal pain or blood. GENITOURINARY: Vaginal bleeding NEUROLOGICAL: Headache and auditory hallucinations. MUSCULOSKELETAL: No muscle pain, back pain, joint pain or stiffness. 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 Head: Normocephalic Atraumatic Eyes: PERRL, EOMI ENT: Airway patent, no stridor Neck: supple, no meningismus Chest: Lungs clear to auscultation bilateral Cardiac: Regular rate and rhythm, no murmurs, rubs or gallops Abdomen: soft, nontender, nondistended; no guarding, rebound, or tenderness to percussion Musculoskeletal: Calves symmetric, nontender, no palpable cord Skin: No rash, normal skin tone Neuro: Alert and Oriented to person, place, and time; No focal deficit, CN 2-12 symmetric and intact - General Limitations: no limitations General appearance: alert Course - Reevaluation(s) Reevaluation #1: Patient with concern for possible UTI. Urine culture ordered. Keflex given. Patient complaining of worsening headache while trying to be evaluated by psych. Patient will be given by mouth medications that she is tolerating fluids just fine. One a did discuss with me that they do want to admit the patient for further evaluation for her UTI as well as headache treated. These have been performed. Patient will continue to be monitored. Vital Signs Temperature 98.4 F 05/31/18 21:42 Pulse Rate 79 05/31/18 21:42 Respiratory Rate 16 05/31/18 21:42 Blood Pressure 132/91 05/31/18 21:42 O2 Sat by Pulse Oximetry 97 05/31/18 21:42 Temperature 98.4 F 05/31/18 21:42 Pulse Rate 79 05/31/18 21:42 Respiratory Rate 16 05/31/18 21:42 Blood Pressure 132/91 05/31/18 21:42 O2 Sat by Pulse Oximetry 97 05/31/18 21:42 Oxygen Delivery Oxygen Delivery Room Air Medical Decision Making - Lab Data Result diagrams: 05/31/18 22:12 05/31/18 22:12 Lab Results 05/31/18 05/31/18 05/31/18 Range/Units 22:12 22:12 22:36 WBC 11.6 H (4.3-11.1) K/mcL RBC 4.38 (3.82-4.97) M/mcL Hgb 13.8 (11.5-15.4) g/dL Hct 39.6 (35.3-44.9) % MCV 90.4 (83.0-100.0) fL MCH 31.5 (28.0-33.3) pg MCHC 34.8 (31.6-35.5) g/dL RDW 13.3 (11.5-14.5) % Plt Count 125 L (140-400) K/mcL MPV 12.3 (9.4-12.4) fL Immature Gran % 0.3 (0-4) % Seg Neutrophils % 56.8 % Lymphocytes % 33.1 % Monocytes % 6.7 % Eosinophils % 2.2 % Basophils % 0.9 % Neutrophils # 6.6 (1.6-8.9) K/mcL Lymphocytes # 3.8 (0.6-4.6) K/mcL Monocytes # 0.8 (0.0-1.3) K/mcL Eosinophils # 0.3 (0.0-0.6) K/mcL Basophils # 0.1 (0.0-0.2) K/mcL Immature Plt Fraction 14.0 H (1.1-6.1) % Sodium 137 (136-145) mEq/L Potassium 4.1 (3.5-5.1) mEq/L Chloride 107 (98-107) mEq/L Carbon Dioxide 23 (23-29) mEq/L BUN 14 (6-20) mg/dL Creatinine 0.58 L (0.60-1.20) mg/dL Est GFR ( Amer) > 60 (> 60) Est GFR (Non-Af Amer) > 60 (> 60) BUN/Creatinine Ratio 24 (6-26) Glucose 112 H (70-105) mg/dL Calculated Osmolality 285 (280-300) Calcium 9.4 (8.6-10.3) mg/dL Urine Color Dark Yellow (Yellow) Urine Clarity Slightly Hazy (Clear) Urine pH 6.0 (5.0-8.0) pH Units Ur Specific [place] 1.023 (1.010-1.025) Urine Protein 100 H (Neg-Trace) mg/dL Urine Glucose (UA) Normal (Normal) mg/dL Urine Ketones Trace H (Negative) mg/dL Urine Blood Large H (Negative) Urine Nitrite Negative (Negative) Urine Bilirubin Small H (Negative) Urine Urobilinogen 2.0 H (Normal) mg/dL Ur Leukocyte Esterase Small H (Negative) Urine Microscopic RBC 5-15 H (0-3) per hpf Urine Microscopic WBC 30-50 H (0-3) per hpf Ur Squamous Epith Cells Many H (None-Few) per lpf Urine Bacteria Few (None-Few) per hpf Hyaline Casts Few (None-Few) per lpf Ur Culture Indicated? NO. A (NO) Salicylates < 2.5 L (15.0-30.0) mg/dL Urine Opiates Screen (Fznaxi=515) ng/mL Acetaminophen < 10 L (10-20) mcg/mL Ur Barbiturates Screen (Gvzwei=049) ng/mL Ur Phencyclidine Scrn (Cutoff=25) ng/mL Ur Amphetamines Screen (Ccvggh=1581) ng/mL U Benzodiazepines Scrn (Wvkwhi=690) ng/mL Urine Cocaine Screen (Cutoff= 300) ng/mL U Marijuana (THC) Screen (Cutoff = 50) ng/mL Ur Drug Screen Interp Ethyl Alcohol < 10 (Less than 10) mg/dL 05/31/18 Range/Units 22:36 WBC (4.3-11.1) K/mcL RBC (3.82-4.97) M/mcL Hgb (11.5-15.4) g/dL Hct (35.3-44.9) % MCV (83.0-100.0) fL MCH (28.0-33.3) pg MCHC (31.6-35.5) g/dL RDW (11.5-14.5) % Plt Count (140-400) K/mcL MPV (9.4-12.4) fL Immature Gran % (0-4) % Seg Neutrophils % % Lymphocytes % % Monocytes % % Eosinophils % % Basophils % % Neutrophils # (1.6-8.9) K/mcL Lymphocytes # (0.6-4.6) K/mcL Monocytes # (0.0-1.3) K/mcL Eosinophils # (0.0-0.6) K/mcL Basophils # (0.0-0.2) K/mcL Immature Plt Fraction (1.1-6.1) % Sodium (136-145) mEq/L Potassium (3.5-5.1) mEq/L Chloride (98-107) mEq/L Carbon Dioxide (23-29) mEq/L BUN (6-20) mg/dL Creatinine (0.60-1.20) mg/dL Est GFR ( Amer) (> 60) Est GFR (Non-Af Amer) (> 60) BUN/Creatinine Ratio (6-26) Glucose (70-105) mg/dL Calculated Osmolality (280-300) Calcium (8.6-10.3) mg/dL Urine Color (Yellow) Urine Clarity (Clear) Urine pH (5.0-8.0) pH Units Ur Specific [place] (1.010-1.025) Urine Protein (Neg-Trace) mg/dL Urine Glucose (UA) (Normal) mg/dL Urine Ketones (Negative) mg/dL Urine Blood (Negative) Urine Nitrite (Negative) Urine Bilirubin (Negative) Urine Urobilinogen (Normal) mg/dL Ur Leukocyte Esterase (Negative) Urine Microscopic RBC (0-3) per hpf Urine Microscopic WBC (0-3) per hpf Ur Squamous Epith Cells (None-Few) per lpf Urine Bacteria (None-Few) per hpf Hyaline Casts (None-Few) per lpf Ur Culture Indicated? (NO) Salicylates (15.0-30.0) mg/dL Urine Opiates Screen Positive H (Dikwkk=980) ng/mL Acetaminophen (10-20) mcg/mL Ur Barbiturates Screen Negative (Njcrxs=499) ng/mL Ur Phencyclidine Scrn Negative (Cutoff=25) ng/mL Ur Amphetamines Screen Positive H (Gvpchu=6958) ng/mL U Benzodiazepines Scrn Negative (Ikswsk=113) ng/mL Urine Cocaine Screen Negative (Cutoff= 300) ng/mL U Marijuana (THC) Screen Negative (Cutoff = 50) ng/mL Ur Drug Screen Interp See Below Ethyl Alcohol (Less than 10) mg/dL
[2018-06-01] MEDS ORDERED: Ibuprofen 600 MG TABLET PO ONE (00:13)
[2018-06-01] MEDS ORDERED: *HR* LORazepam 1 MG TABLET PO PRN (00:45)
[2018-06-01] MEDS ORDERED: MOM Conc 10 ML UD.LIQ PO PRN (00:45)
[2018-06-01] MEDS ORDERED: Ibuprofen 400 MG TABLET PO PRN (00:45)
[2018-06-01] MEDS ORDERED: *HR* LORazepam 2 MG/ML VIAL IM PRN (00:45)
[2018-06-01] MEDS ORDERED: Mag Hydrox/Al Hydrox/Simeth 30 ML UDC PO PRN (00:45)
[2018-06-01] MEDS ORDERED: Haloperidol Lactate 5 MG/ML VIAL IM PRN (00:45)
[2018-06-01] MEDS ORDERED: traZODone 50 MG TABLET PO PRN (00:45)
[2018-06-01] MEDS: Ibuprofen 600 MG TABLET PO SCH ×3 (09:51→21:42)
[2018-06-01] MEDS: risperiDONE 0.25 MG TABLET PO SCH ×4 (09:52→21:42)
[2018-06-01] MEDS: cephALEXin 500 MG CAPSULE PO SCH ×2 (09:52→21:42)
[2018-06-01] MEDS: Nicotine 21 MG PATCH.TD24 TD SCH (09:53)
[2018-06-01] MEDS: Gabapentin 400 MG CAPSULE PO SCH ×3 (09:54→21:41)
--- NOTE | 2018-06-01 10:24 | Psychiatry History & Physical ---
Date of Encounter: 06/01/18 Time of Encounter: 10:16 History of Present Illness Patient Stated Chief Complaint: suicidal ideation Medicare Admission Attestation: For traditional Medicare patients the provided hospital inpatient services are reasonable and necessary and in the case of services not specified as inpatient -only under 42 CFR 419.22 (n), that they are appropriately provided as inpatient services in accordance 42 CFR 412.3. For Critical Access Hospital the patient may reasonably be expected to be discharged or transferred to a hospital within 96 hours after admission to the Critical Access Hospital. Admitted From: Home Plans for Post Hospital Care: Home History of Present Illness: Ms. Kilgore is a 32 year old female who was admitted secondary to SI. States today she has a long standing history of SI and depression and has been admitted psychiatrically "a bunch of times." Not currently linked with a provider but claims PCP is prescribing meds for "Bipolar Disorder and PTSD." Looks to be taking a combination of Zoloft, Risperdal, and Seroquel. Client denies recreational drugs but tox screen positive for Opiates and Amphetamines. She is very focused on obtaining her Suboxone. Family brought in her home meds but Suboxone not one of them. If home dose can be verified will switch her to Subutex. Medically she is treated for Hypertension. Agreeable to increasing her Zoloft today to help with mood but suspect current presentation more related to substance abuse. Past Med Surg Social Fam HX - Past Medical History Medical history: hepatitis, hypertension, seizures - Past Psychiatric History Psychiatric history: Reports: bipolar, depression, previous psychiatric hospitalization Family psychiatric history: Unknown Family History of Suicide: Unknown - Past Surgical History Surgical History: non-contributory, , other - Social History Smoking Status: Current every day smoker Smokeless Tobacco Status: No Alcohol use: none Drug use: methamphetamine, IV Drug Use, other Medications & Allergies Buprenorphine HCl/Naloxone HCl [Buprenorphin-Naloxon 8-2 mg Sl] 1.5 tab SL DAILY 04/16/18 [History] Ibuprofen [Ibu] 600 mg PO TID 04/16/18 [History] Lisinopril [Zestril] 10 mg PO DAILY 04/16/18 [History] Quetiapine Fumarate [Seroquel] 200 mg PO HS 04/16/18 [History] Sertraline [Zoloft] 150 mg PO DAILY 04/16/18 [History] risperiDONE [RisperDAL] 0.25 mg PO QID 04/16/18 [History] Gabapentin [Neurontin] 800 mg PO TID #90 capsule 04/23/18 [Rx] 3 Allergy/AdvReac Type Severity Reaction Status Date / Time No Known Allergies Allergy Verified 05/31/18 21:47 Review of Systems Constitutional: Denies: fever, chills, weakness, weight change Eyes: Denies: eye pain, vision change Ears, Nose, Throat: Denies: ear pain, throat pain, dental pain, hearing loss, congestion Cardiovascular: Denies: chest pain, palpitations, dyspnea on exertion Respiratory: Denies: cough, dyspnea, wheezes Gastrointestinal: Denies: abdominal pain, nausea, vomiting, diarrhea, constipation Genitourinary female: Denies: urgency, dysuria, frequency, abnormal menses, dyspareunia Musculoskeletal: Denies: joint swelling, joint pain Integumentary: Denies: rash, lesions, pruritus Neurological: Denies: headache, weakness, numbness, memory loss Endocrine: Denies: fatigue, heat or cold intolerance Hematologic/Lymphatic: Denies: easy bruising, lymphadenopathy Allergic/Immunologic: Denies: urticaria, itchy eyes Exam - HEENT Head exam IM: Present: atraumatic Eye exam IM: Present: EOMI, normal appearance, PERRL ENT exam IM: Present: normal exam - Neurological Neurological exam: Present: CN II-XII intact - Respiratory Respiratory exam IM: Present: CTAB - GI/Abdominal GI/Abdominal exam IM: Present: normal bowel sounds, soft. Absent: tenderness - Extremities Extremities exam IM: Present: full ROM - Skin Skin exam IM: Present: dry, rash, warm - Constitutional Vitals: Temp Pulse Resp BP Pulse Ox 98.1 F 67 18 135/90 97 06/01/18 09:00 06/01/18 09:00 06/01/18 09:00 06/01/18 09:00 05/31/18 21:42 General appearance: age & developmentally appropriate, well-nourished - Musculoskeletal Gait: normal Station: relaxed Strength & Tone: normal for patient - Psychiatric Patient Orientation: Yes Person, Yes Time, Yes Place Level of alertness: Alert Behavior: calm, cooperative Psychomotor activity: Normal Eye Contact: Maintains Eye Contact Mood Description: Depressed Affect description: congruent with mood Speech Volume: Normal Speech pattern: normal rate, normal rhythm, normal tone, fluent, spontaneous Language & Vocabulary: consistent with education Thought Process: Linear Thought Content: Yes Suicidal ideation, No Homicidal ideation, No Overt delusions Perceptual Disturbances: Yes Auditory hallucinations Attention Span Ability: Capable of Focused Attention Memory Description: Grossly Intact Patient Reliability: Questionable Historian Fund of knowledge: Yes abstraction ability, Yes average, Yes aware of current events Intelligence Estimate: Average Judgment: Limited Insight: Partial Results - Labs Labs: Laboratory Last Values WBC 11.6 K/mcL (4.3-11.1) H 05/31/18 22:12 RBC 4.38 M/mcL (3.82-4.97) 05/31/18 22:12 Hgb 13.8 g/dL (11.5-15.4) 05/31/18 22:12 Hct 39.6 % (35.3-44.9) 05/31/18 22:12 MCV 90.4 fL (83.0-100.0) 05/31/18 22:12 MCH 31.5 pg (28.0-33.3) 05/31/18 22:12 MCHC 34.8 g/dL (31.6-35.5) 05/31/18 22:12 RDW 13.3 % (11.5-14.5) 05/31/18 22:12 Plt Count 125 K/mcL (140-400) L 05/31/18 22:12 MPV 12.3 fL (9.4-12.4) 05/31/18 22:12 Immature Gran % 0.3 % (0-4) 05/31/18 22:12 Seg Neutrophils % 56.8 % 05/31/18 22:12 Lymphocytes % 33.1 % 05/31/18 22:12 Monocytes % 6.7 % 05/31/18 22:12 Eosinophils % 2.2 % 05/31/18 22:12 Basophils % 0.9 % 05/31/18 22:12 Neutrophils # 6.6 K/mcL (1.6-8.9) 05/31/18 22:12 Lymphocytes # 3.8 K/mcL (0.6-4.6) 05/31/18 22:12 Monocytes # 0.8 K/mcL (0.0-1.3) 05/31/18 22:12 Eosinophils # 0.3 K/mcL (0.0-0.6) 05/31/18 22:12 Basophils # 0.1 K/mcL (0.0-0.2) 05/31/18 22:12 Immature Plt Fraction 14.0 % (1.1-6.1) H 05/31/18 22:12 Sodium 137 mEq/L (136-145) 05/31/18 22:12 Potassium 4.1 mEq/L (3.5-5.1) 05/31/18 22:12 Chloride 107 mEq/L (98-107) 05/31/18 22:12 Carbon Dioxide 23 mEq/L (23-29) 05/31/18 22:12 BUN 14 mg/dL (6-20) 05/31/18 22:12 Creatinine 0.58 mg/dL (0.60-1.20) L 05/31/18 22:12 Est GFR ( Amer) > 60 (> 60) 05/31/18 22:12 Est GFR (Non-Af Amer) > 60 (> 60) 05/31/18 22:12 BUN/Creatinine Ratio 24 (6-26) 05/31/18 22:12 Glucose 112 mg/dL (70-105) H 05/31/18 22:12 Calculated Osmolality 285 (280-300) 05/31/18 22:12 Calcium 9.4 mg/dL (8.6-10.3) 05/31/18 22:12 Urine Color Dark Yellow (Yellow) 05/31/18 22:36 Urine Clarity Slightly Hazy (Clear) 05/31/18 22:36 Urine pH 6.0 pH Units (5.0-8.0) 05/31/18 22:36 Ur Specific Willits 1.023 (1.010-1.025) 05/31/18 22:36 Urine Protein 100 mg/dL (Neg-Trace) H 05/31/18 22:36 Urine Glucose (UA) Normal mg/dL (Normal) 05/31/18 22:36 Urine Ketones Trace mg/dL (Negative) H 05/31/18 22:36 Urine Blood Large (Negative) H 05/31/18 22:36 Urine Nitrite Negative (Negative) 05/31/18 22:36 Urine Bilirubin Small (Negative) H 05/31/18 22:36 Urine Urobilinogen 2.0 mg/dL (Normal) H 05/31/18 22:36 Ur Leukocyte Esterase Small (Negative) H 05/31/18 22:36 Urine Microscopic RBC 5-15 per hpf (0-3) H 05/31/18 22:36 Urine Microscopic WBC 30-50 per hpf (0-3) H 05/31/18 22:36 Ur Squamous Epith Cells Many per lpf (None-Few) H 05/31/18 22:36 Urine Bacteria Few per hpf (None-Few) 05/31/18 22:36 Hyaline Casts Few per lpf (None-Few) 05/31/18 22:36 Ur Culture Indicated? NO. (NO) A 05/31/18 22:36 Salicylates < 2.5 mg/dL (15.0-30.0) L 05/31/18 22:12 Urine Opiates Screen Positive ng/mL (Fowttt=401) H 05/31/18 22:36 Acetaminophen < 10 mcg/mL (10-20) L 05/31/18 22:12 Ur Barbiturates Screen Negative ng/mL (Cgnfrr=497) 05/31/18 22:36 Ur Phencyclidine Scrn Negative ng/mL (Cutoff=25) 05/31/18 22:36 Ur Amphetamines Screen Positive ng/mL (Nrfgjf=4109) H 05/31/18 22:36 U Benzodiazepines Scrn Negative ng/mL (Mhjdkm=919) 05/31/18 22:36 Urine Cocaine Screen Negative ng/mL (Cutoff= 300) 05/31/18 22:36 U Marijuana (THC) Screen Negative ng/mL (Cutoff = 50) 05/31/18 22:36 Ur Drug Screen Interp See Below 05/31/18 22:36 Ethyl Alcohol < 10 mg/dL (Less than 10) 05/31/18 22:12 Assessment and Plan (1) Drug-induced psychotic disorder Current visit: No Status: Acute Plan: Admit inpatient for safety and stabilization, Close observation, Suicide Precautions per unit protocol, Encourage participation in unit milieu, Group Therapy, Monitor sleep, Monitor appetite Risks, benefits, side effects, alternatives discussed w/pt: Yes Patient agreeable to treatment: Yes Plans for Post Hospital Care: Home Estimated Length of Stay (Days): 4 Qualifiers: Complication of substance-induced condition: with hallucinations Qualified Code(s): F19.951 - Other psychoactive substance use, unspecified with psychoactive substance-induced psychotic disorder with hallucinations (2) Polysubstance dependence Current visit: No Status: Acute Plan: Admit inpatient for safety and stabilization, Close observation, Suicide Precautions per unit protocol, Encourage participation in unit milieu, Group Therapy, Monitor sleep, Monitor appetite Risks, benefits, side effects, alternatives discussed w/pt: Yes Patient agreeable to treatment: Yes Plans for Post Hospital Care: Home Estimated Length of Stay (Days): 4
[2018-06-02] MEDS: Ibuprofen 600 MG TABLET PO SCH ×3 (08:51→21:46)
[2018-06-02] MEDS: Gabapentin 400 MG CAPSULE PO SCH ×3 (08:51→21:46)
[2018-06-02] MEDS: cephALEXin 500 MG CAPSULE PO SCH ×2 (08:51→21:47)
[2018-06-02] MEDS: Nicotine 21 MG PATCH.TD24 TD SCH (08:52)
[2018-06-02] MEDS: risperiDONE 0.25 MG TABLET PO SCH ×4 (08:52→21:46)
--- NOTE | 2018-06-02 12:16 | Psychiatry Progress Note ---
Date of Encounter: 06/02/18 Time of Encounter: 12:12 Subjective Interval history: According to staff client has been irritable and isolative. Actually knows one of the other females on the unit. Her peer acted pleased to see her but client has not interacted with her unless specifically approached. Upset about not getting Suboxone. Staff told her to have family bring in supply. Family brought in a bunch of other meds but not Suboxone. Client wants Subutex. Informed this can be ordered once current prescription for Suboxone is verified. States she is still suicidal but just had increased dose of Zoloft for the first time today. Also reporting she wants something for anxiety. Discussed Vistaril as a prn and she is agreeable. Review of Systems Constitutional: Denies: fever, chills, weakness, weight change Eyes: Denies: eye pain, vision change Ears, Nose, Throat: Denies: ear pain, throat pain, dental pain, hearing loss, congestion Cardiovascular: Denies: chest pain, palpitations, dyspnea on exertion Respiratory: Denies: cough, dyspnea, wheezes Gastrointestinal: Denies: abdominal pain, nausea, vomiting, diarrhea, constipation Musculoskeletal: Denies: joint swelling, joint pain Neurological: Denies: headache, weakness, numbness, memory loss Results - Vital Signs Vital Signs: Temp Pulse Resp BP Pulse Ox 98.3 F 80 18 121/90 97 06/02/18 09:00 06/02/18 09:00 06/02/18 09:00 06/02/18 09:00 05/31/18 21:42 Assessment and Plan (1) Drug-induced psychotic disorder Current visit: No Status: Acute Plan: Continue hospitalization, Close observation, Suicide Precautions per unit protocol, Encourage participation in unit milieu, Group Therapy, Monitor sleep, Monitor appetite Risks, benefits, side effects, alternatives discussed w/pt: Yes Patient agreeable to treatment: Yes Qualifiers: Complication of substance-induced condition: with hallucinations Qualified Code(s): F19.951 - Other psychoactive substance use, unspecified with psychoactive substance-induced psychotic disorder with hallucinations (2) Polysubstance dependence Current visit: No Status: Acute Plan: Continue hospitalization, Close observation, Suicide Precautions per unit protocol, Encourage participation in unit milieu, Group Therapy, Monitor sleep, Monitor appetite Risks, benefits, side effects, alternatives discussed w/pt: Yes Patient agreeable to treatment: Yes Consult Discharge Plan - Plan Referrals: NONE,PCP [Primary Care Provider] - Psychiatry Exam - Constitutional Vitals: Temp Pulse Resp BP Pulse Ox 98.3 F 80 18 121/90 97 06/02/18 09:00 06/02/18 09:00 06/02/18 09:00 06/02/18 09:00 05/31/18 21:42 General appearance: age & developmentally appropriate, well-groomed, well- nourished - Musculoskeletal Gait: normal Station: relaxed Strength & Tone: normal for patient - Psychiatric Patient Orientation: Yes Person, Yes Time, Yes Place Level of alertness: Alert Behavior: calm, cooperative Psychomotor activity: Normal Eye Contact: Maintains Eye Contact Mood Description: Depressed, Irritable Affect description: congruent with mood Speech Volume: Normal Speech pattern: normal rate, normal rhythm, normal tone, fluent, spontaneous Language & Vocabulary: consistent with education Thought Process: Linear, Goal Oriented Thought Content: Yes Suicidal ideation, No Homicidal ideation, No Overt delusions Perceptual Disturbances: No Auditory hallucinations, No Visual hallucinations Attention Span Ability: Capable of Focused Attention Memory Description: Grossly Intact Patient Reliability: Questionable Historian Fund of knowledge: Yes abstraction ability, Yes aware of current events Intelligence Estimate: Average Judgment: Limited Insight: Partial
[2018-06-02] MEDS: hydrOXYzine pamoate 25 MG CAPSULE PO PRN ×2 (12:29→17:25)
[2018-06-03] MEDS: Gabapentin 400 MG CAPSULE PO SCH ×3 (09:14→21:37)
[2018-06-03] MEDS: risperiDONE 0.25 MG TABLET PO SCH ×4 (09:14→21:37)
[2018-06-03] MEDS: Ibuprofen 600 MG TABLET PO SCH ×3 (09:14→21:36)
[2018-06-03] MEDS: cephALEXin 500 MG CAPSULE PO SCH ×2 (09:14→21:37)
[2018-06-03] MEDS: Nicotine 21 MG PATCH.TD24 TD SCH (09:15)
--- NOTE | 2018-06-03 15:22 | Psychiatry Progress Note ---
Date of Encounter: 06/03/18 Time of Encounter: 15:00 Subjective Interval history: The patient is a 32-year-old white female. She is previously known to me from previous hospitalization. Chief complaint I am trying to stay clean I just could not do it without the Subutex. History of present illness. The patient has previously been on Sub Suboxone. And in the previous hospitalization was on Subutex. The last time that she had it filled was April 25. She was going to self or find.). If time she may have had a drop off or relapse. She [facility] and that she could not maintain her sobriety. She said she laughed and did not describe an argument or falling out. Nonetheless the patient does acknowledge having a affective disorder and hearing voices although she is not really interested in treatment she is looking for help with sleep and anxiety. She is identified some mental health issues but topic focuses around drug use and relapse. She recognizes that methamphetamine is not good for her and once stabilized from. She has plans to move in with a roommate. 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 She says that she will follow-up with self or find. She says that she does not have plans to go back [facility]. 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 Current visit: No Status: Acute Plan: Continue hospitalization, Close observation, Suicide Precautions per unit protocol, Encourage participation in unit milieu (3) Patient's noncompliance with other medical treatment and regimen Current visit: No Status: Chronic Plan: Continue hospitalization, Close observation, Suicide Precautions per unit protocol, Encourage participation in unit milieu Consult Discharge Plan - Plan Referrals: NONE,PCP [Primary Care Provider] - Psychiatry Exam - Constitutional Vitals: Temp Pulse Resp BP Pulse Ox 97.6 F 77 18 128/86 97 06/03/18 09:00 06/03/18 09:00 06/03/18 09:00 06/03/18 09:00 05/31/18 21:42 General appearance: age & developmentally appropriate - Musculoskeletal Gait: normal Station: relaxed Strength & Tone: normal for patient - Psychiatric Patient Orientation: Yes Person, Yes Time, Yes Place Level of alertness: Alert Behavior: cooperative Psychomotor activity: Slowed Eye Contact: Maintains Eye Contact Mood Description: Depressed Affect description: congruent with mood Speech Volume: Normal Speech pattern: normal rate Language & Vocabulary: consistent with education Thought Process: Loose Associations, Perseveration Thought Content: Yes Suicidal ideation Perceptual Disturbances: Yes Auditory hallucinations Attention Span Ability: Capable of Focused Attention Memory Description: Immediate Intact Patient Reliability: Not Reliable Historian Fund of knowledge: Yes average Intelligence Estimate: Average Judgment: Limited Insight: Minimal
[2018-06-04] MEDS: Nicotine 21 MG PATCH.TD24 TD SCH (08:22)
[2018-06-04] MEDS: cephALEXin 500 MG CAPSULE PO SCH ×2 (08:23→20:45)
[2018-06-04] MEDS: risperiDONE 0.25 MG TABLET PO SCH ×4 (08:23→20:46)
[2018-06-04] MEDS: Gabapentin 400 MG CAPSULE PO SCH ×3 (08:23→20:44)
[2018-06-04] MEDS: *HR* Buprenorphine HCl 2 MG SUBLINGUAL TABLET SL SCH (08:24)
[2018-06-04] MEDS: Ibuprofen 600 MG TABLET PO SCH ×3 (12:26→20:46)
[2018-06-04] MEDS: hydrOXYzine pamoate 25 MG CAPSULE PO PRN (12:29)
[2018-06-04] MEDS ORDERED: RisperiDONE MICROSPHERES 25 MG/2 ML SYRINGE IM SCH (13:15)
--- NOTE | 2018-06-04 15:17 | Psychiatry Progress Note ---
Date of Encounter: 06/04/18 Time of Encounter: 15:15 Subjective Interval history: The patient is a 32-year-old white female. Chief complaint I am going to flip out. History of present illness. The patient is complaining of anxiety but is on gabapentin 800 mg 3 times a day she is on Suboxone equivalent 8 mg per day. Previously she was on the higher dose was more sedated. Today she wanted to argue about the dose of Suboxone but she has some control over her craving. The patient is scheduled to get Risperdal Consta today as an injection to help her to control the voices. She hears the voices they sometimes say bad things to her. She sometimes thinks that they are tormenting her. She tries to go to to fight them but. When she is overwhelmed by the voices she goes to use. This is an effort to cope with auditory hallucinations. Patient is reporting anxiety is more concerning. She reports Vistaril does not work so discontinued that I offered her baclofen 10 mg 3 times a day. She says she has not certain about that will call her father to look up this medicine. I reassured her that this may be helpful for some patients with anxiety. The patient is currently on Suboxone some benzodiazepines are contraindicated due to the risk of respiratory suppression Review of Systems Psychiatric: Reports: depression, anxiety, suicidal ideation, auditory hallucinations, irritability Results - Vital Signs Vital Signs: Temp Pulse Resp BP Pulse Ox 97.9 F 84 16 121/89 97 06/04/18 09:00 06/04/18 09:00 06/04/18 09:00 06/04/18 09:00 05/31/18 21:42 Assessment and Plan (1) Schizoaffective disorder, bipolar type Current visit: Yes Status: Acute Risks, benefits, side effects, alternatives discussed w/pt: Yes Patient agreeable to treatment: Yes (2) 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 Please bring photo ID and insurance card to your appointment.) Deyanira Carias [Advanced Practice Nurse] - 06/18/18 12:00 pm (The above appointment is with Deyanira Carias for primary care and medications. ) Psychiatry Exam - Constitutional Vitals: Temp Pulse Resp BP Pulse Ox 97.9 F 84 16 121/89 97 06/04/18 09:00 06/04/18 09:00 06/04/18 09:00 06/04/18 09:00 05/31/18 21:42 General appearance: age & developmentally appropriate - Musculoskeletal Gait: normal Station: relaxed Strength & Tone: normal for patient - Psychiatric Patient Orientation: Yes Person, Yes Time, Yes Place Level of alertness: Alert Behavior: calm, cooperative Psychomotor activity: Normal Eye Contact: Maintains Eye Contact Mood Description: Anxious Affect description: congruent with mood, dysphoric Speech Volume: Normal Speech pattern: normal rate, normal rhythm, normal tone, fluent, spontaneous Language & Vocabulary: consistent with education Thought Process: Linear, Goal Oriented Thought Content: No Suicidal ideation, No Homicidal ideation, No Overt delusions Perceptual Disturbances: Yes Auditory hallucinations, No Visual hallucinations Attention Span Ability: Capable of Focused Attention Memory Description: Grossly Intact Patient Reliability: Questionable Historian Fund of knowledge: Yes abstraction ability, Yes aware of current events Intelligence Estimate: Average Judgment: Fair Insight: Partial
[2018-06-04] MEDS: Baclofen 10 MG TABLET PO SCH (20:45)
--- NOTE | 2018-06-05 11:32 | Psychiatry Progress Note ---
Date of Encounter: 06/05/18 Time of Encounter: 10:30 Subjective Interval history: Patient is a 32-year-old white female. Chief complaint I have racing thoughts, I was not give my morning medicines. History of present illness. The patient is concerned that she did not receive her medicines. She reports that she is not getting the proper treatment and not getting enough of the Subutex. Unfortunately the patient receive more than expected Seroquel last night. The patient was told that we needed her blood pressure and sedation to improve before we do give her morning medicines. She did not like this answer. She continued to argue with me about how she is voices and how she knows her best treatment and how others do not listen to her. However I encouraged the patient to sign in as a voluntary patient so that she could stay on the current regimen of medicines until Sunday. She would be discharged Sunday [facility] clinic. The patient could also benefit from improved compliance. However the patient may choose not to sign in as voluntary patient and I did discuss limited medicines for discharge. Risperdal Consta while ordered is not available in our pharmacy. And a home supplies not available. Review of Systems Psychiatric: Reports: depression, anxiety, suicidal ideation, auditory hallucinations, irritability Results - Vital Signs Vital Signs: Temp Pulse Resp BP Pulse Ox 97.3 F L 83 16 103/74 97 06/05/18 09:00 06/05/18 09:00 06/05/18 09:00 06/05/18 09:00 05/31/18 21:42 Assessment and Plan (1) Schizoaffective disorder, bipolar type Current visit: Yes Status: Acute Plan: Continue hospitalization, Close observation, Suicide Precautions per unit protocol, Encourage participation in unit milieu, Group Therapy Risks, benefits, side effects, alternatives discussed w/pt: Yes Patient agreeable to treatment: Yes (2) 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 Current visit: No Status: Acute Plan: Continue hospitalization, Close observation, Suicide Precautions per unit protocol, Encourage participation in unit milieu Risks, benefits, side effects , alternatives discussed w/pt: Yes Patient agreeable to treatment: Yes (3) Patient's noncompliance with other medical treatment and regimen Current visit: No Status: Chronic Plan: Continue hospitalization, Close observation, Suicide Precautions per unit protocol, Encourage participation in unit milieu, Monitor sleep Risks, benefits, side effects, alternatives discussed w/pt: Yes Patient agreeable to treatment: Yes (4) Uncomplicated opioid dependence Current visit: Yes Status: Chronic Plan: Continue hospitalization, Suicide Precautions per unit protocol, Encourage participation in unit milieu, Group Therapy Risks, benefits, side effects, alternatives discussed w/pt: Yes Patient agreeable to treatment: Yes Consult Discharge Plan - Plan Referrals: [facility] [Other] - 06/07/18 4:30 pm (FAX:[phone]) [facility] [Outside] - 06/12/18 10:00 am (The above appointment is with Patricia Beck for mental health and substance abuse counseling. Please bring photo ID and insurance card to your appointment.) Deyanira Carias [Advanced Practice Nurse] - 06/18/18 12:00 pm (The above appointment is with Deyanira Carias for primary care and medications. ) Psychiatry Exam - Constitutional Vitals: Temp Pulse Resp BP Pulse Ox 97.3 F L 83 16 103/74 97 06/05/18 09:00 06/05/18 09:00 06/05/18 09:00 06/05/18 09:00 05/31/18 21:42 General appearance: age & developmentally appropriate, well-groomed, well- nourished - Musculoskeletal Gait: normal Station: relaxed Strength & Tone: normal for patient - Psychiatric Patient Orientation: Yes Person, Yes Time, Yes Place Level of alertness: Alert Behavior: calm, cooperative Psychomotor activity: Normal Eye Contact: Maintains Eye Contact Mood Description: Anxious, Irritable Affect description: full range, incongruent with mood Speech Volume: Normal Speech pattern: normal rate, normal rhythm, normal tone, fluent, spontaneous, Inappropriate to situation Language & Vocabulary: consistent with education Thought Process: Linear, Goal Oriented Thought Content: No Suicidal ideation, No Homicidal ideation, No Overt delusions Perceptual Disturbances: Yes Auditory hallucinations, No Visual hallucinations Attention Span Ability: Capable of Focused Attention Memory Description: Grossly Intact Patient Reliability: Questionable Historian Fund of knowledge: Yes abstraction ability, Yes aware of current events Intelligence Estimate: Average Judgment: Fair Insight: Partial
[2018-06-05] MEDS: Ibuprofen 600 MG TABLET PO SCH ×3 (11:34→21:54)
[2018-06-05] MEDS: Baclofen 10 MG TABLET PO SCH ×3 (11:34→21:54)
[2018-06-05] MEDS: cephALEXin 500 MG CAPSULE PO SCH ×3 (11:34→21:53)
[2018-06-05] MEDS: *HR* Buprenorphine HCl 2 MG SUBLINGUAL TABLET SL SCH ×2 (11:34→12:47)
[2018-06-05] MEDS: risperiDONE 0.25 MG TABLET PO SCH ×4 (11:34→21:54)
[2018-06-05] MEDS: Gabapentin 400 MG CAPSULE PO SCH ×3 (11:34→21:55)
[2018-06-05] MEDS: Nicotine 21 MG PATCH.TD24 TD SCH (11:35)
[2018-06-06] MEDS: Nicotine 21 MG PATCH.TD24 TD SCH (09:22)
[2018-06-06] MEDS: Baclofen 10 MG TABLET PO SCH (09:22)
[2018-06-06] MEDS: cephALEXin 500 MG CAPSULE PO SCH ×2 (09:22→20:36)
[2018-06-06] MEDS: Ibuprofen 600 MG TABLET PO SCH ×3 (09:22→20:35)
[2018-06-06] MEDS: risperiDONE 0.25 MG TABLET PO SCH ×4 (09:23→20:37)
[2018-06-06] MEDS: Gabapentin 400 MG CAPSULE PO SCH ×3 (09:23→20:35)
[2018-06-06] MEDS: *HR* Buprenorphine HCl 2 MG SUBLINGUAL TABLET SL SCH (09:24)
--- NOTE | 2018-06-06 15:04 | Psychiatry Progress Note ---
Date of Encounter: 06/06/18 Time of Encounter: 15:00 Subjective Interval history: ID: [id number] W female CC: Nabeeltaril makes my legs hurt HPI: Patient is interested in follow-up at [facility]. she presented with complaints of anxiety. She reports auditory hallucinations and when asked about suicide, she says not at this time. She no plans otkill herself. She feels she needs help with anxiety. Review of Systems Neurological: Reports: confusion Psychiatric: Reports: depression, anxiety, suicidal ideation, auditory hallucinations, irritability Results - Vital Signs Vital Signs: Temp Pulse Resp BP Pulse Ox 98.6 F 87 16 111/74 97 06/06/18 09:00 06/06/18 09:00 06/06/18 09:00 06/06/18 09:00 05/31/18 21:42 Assessment and Plan (1) Schizoaffective disorder, bipolar type Current visit: Yes Status: Acute Plan: Continue hospitalization, Close observation, Suicide Precautions per unit protocol, Encourage participation in unit milieu, Group Therapy Risks, benefits, side effects, alternatives discussed w/pt: Yes Patient agreeable to treatment: Yes (2) 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 Current visit: No Status: Acute Plan: Continue hospitalization, Group Therapy, Monitor sleep Risks, benefits, side effects, alternatives discussed w/pt: Yes Patient agreeable to treatment : Yes (3) Patient's noncompliance with other medical treatment and regimen Current visit: No Status: Chronic Plan: Monitor appetite, Secure weapons, Family/Supportive other meeting Risks , benefits, side effects, alternatives discussed w/pt: Yes Patient agreeable to treatment: Yes (4) Uncomplicated opioid dependence Current visit: Yes Status: Chronic Plan: Monitor appetite, Family/Supportive other meeting Risks, benefits, side effects, alternatives discussed w/pt: Yes Patient agreeable to treatment: Yes Consult Discharge Plan - Plan Referrals: [facility] [Other] - 06/07/18 4:30 pm (FAX:[phone]) [facility] [Outside] - 06/12/18 10:00 am (The above appointment is with Patricia Beck for mental health and substance abuse counseling. Please bring photo ID and insurance card to your appointment.) Deyanira Carias [Advanced Practice Nurse] - 06/18/18 12:00 pm (The above appointment is with Deyanira Carias for primary care and medications. ) Psychiatry Exam - Constitutional Vitals: Temp Pulse Resp BP Pulse Ox 98.6 F 87 16 111/74 97 06/06/18 09:00 06/06/18 09:00 06/06/18 09:00 06/06/18 09:00 05/31/18 21:42 General appearance: age & developmentally appropriate, well-groomed, well- nourished, average - Musculoskeletal Gait: normal Station: relaxed Strength & Tone: normal for patient - Psychiatric Patient Orientation: Yes Person, Yes Time, Yes Place Level of alertness: Alert Behavior: calm, cooperative Psychomotor activity: Normal Eye Contact: Maintains Eye Contact Mood Description: Anxious, Irritable Affect description: congruent with mood, full range Speech Volume: Normal Speech pattern: normal rate, normal rhythm, normal tone, fluent, spontaneous Language & Vocabulary: consistent with education Thought Process: Linear, Goal Oriented Thought Content: Yes Suicidal ideation, No Homicidal ideation, No Overt delusions Perceptual Disturbances: Yes Auditory hallucinations, No Visual hallucinations Attention Span Ability: Capable of Focused Attention Memory Description: Grossly Intact Patient Reliability: Reliable Historian Fund of knowledge: Yes abstraction ability, Yes aware of current events Intelligence Estimate: Average Judgment: Fair Insight: Partial
[2018-06-07 08:35] VITALS: BP 114/77
[2018-06-07] MEDS: Nicotine 21 MG PATCH.TD24 TD SCH (09:13)
[2018-06-07] MEDS: Ibuprofen 600 MG TABLET PO SCH ×2 (09:14→14:55)
[2018-06-07] MEDS: Gabapentin 400 MG CAPSULE PO SCH ×2 (09:14→14:55)
[2018-06-07] MEDS: risperiDONE 0.25 MG TABLET PO SCH ×2 (09:14→13:06)
[2018-06-07] MEDS: *HR* Buprenorphine HCl 2 MG SUBLINGUAL TABLET SL SCH (09:14)
[2018-06-07] MEDS: cephALEXin 500 MG CAPSULE PO SCH (09:15)
--- NOTE | 2018-06-07 09:34 | Discharge Summary ---
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 Priority: Secondary Status: Acute (3) Patient's noncompliance with other medical treatment and regimen Priority: Secondary Status: Chronic (4) Uncomplicated opioid dependence Priority: Secondary Status: Chronic Medications - Discharge Medications Prescriptions: Gabapentin [Neurontin] 800 mg PO TID 14 Days #60 capsule Ibuprofen [Ibu] 600 mg PO TID 14 Days #14 tablet Lisinopril [Zestril] 10 mg PO DAILY 14 Days #14 tablet Quetiapine Fumarate [Seroquel] 200 mg PO HS 14 Days #14 tablet risperiDONE [RisperDAL] 0.25 mg PO QID 14 Days #60 tablet Sertraline [Zoloft] 150 mg PO DAILY 14 Days #14 tablet Buprenorphine HCl/Naloxone HCl [Buprenorphin-Naloxon 8-2 mg Sl] 1.5 tab SL DAILY 04/16/18 [History] Gabapentin [Neurontin] 800 mg PO TID 14 Days #60 capsule 06/07/18 [Rx] Ibuprofen [Ibu] 600 mg PO TID 14 Days #14 tablet 06/07/18 [Rx] Lisinopril [Zestril] 10 mg PO DAILY 14 Days #14 tablet 06/07/18 [Rx] Quetiapine Fumarate [Seroquel] 200 mg PO HS 14 Days #14 tablet 06/07/18 [Rx] RisperiDONE MICROSPHERES [RisperDAL CONSTA] 12.5 mg IM Q2W 14 Days #1 syringe [Rx] Sertraline [Zoloft] 150 mg PO DAILY 14 Days #14 tablet 06/07/18 [Rx] risperiDONE [RisperDAL] 0.25 mg PO QID 14 Days #60 tablet 06/07/18 [Rx] 3 Allergy/AdvReac Type Severity Reaction Status Date / Time No Known Allergies Allergy Verified 05/31/18 21:47 Provider Date of admission: 06/01/18 00:21 Primary care physician: PCP NONE Discharging clinician: Pasha Martinez Psychiatry Exam - Constitutional Vitals: Temp Pulse Resp BP Pulse Ox 97.9 F 72 16 114/77 97 06/07/18 08:34 06/07/18 08:34 07/13/18 08:34 06/07/18 08:34 05/31/18 21:42 General appearance: age & developmentally appropriate, well-groomed, well- nourished - Musculoskeletal Gait: normal Station: relaxed Strength & Tone: normal for patient - Psychiatric Patient Orientation: Yes Person, Yes Time, Yes Place Level of alertness: Alert Behavior: calm, cooperative Psychomotor activity: Normal Eye Contact: Maintains Eye Contact Mood Description: Euthymic/stable Affect description: congruent with mood, full range Speech Volume: Normal Speech pattern: normal rate, normal rhythm, normal tone, fluent, spontaneous Language & Vocabulary: consistent with education Thought Process: Linear, Goal Oriented Thought Content: No Suicidal ideation, No Homicidal ideation, No Overt delusions Perceptual Disturbances: Yes Auditory hallucinations, No Visual hallucinations Attention Span Ability: Capable of Focused Attention Memory Description: Grossly Intact Patient Reliability: Not Reliable Historian Fund of knowledge: Yes abstraction ability, Yes aware of current events Intelligence Estimate: Average Judgment: Fair Insight: Partial Hospital Course Hospital course: Ms. Kilgore is a 32 year old female The patient had not been admitted for suicidal ideation. She had schizoaffective disorder bipolar type. The patient did have not have significant mika she did not have significant depression but she complained of anxiety during her hospital stay. The patient also had auditory hallucinations. These would talk to her and tell her things. Her efforts to get these treated had not been very good and the patient had resorted to using methamphetamine. The patient's hallucinations may have been exacerbated or caused by methamphetamine and methamphetamine abuse was a primary reason for admission. In addition the patient's noncompliance with treatment was felt to contribute significantly to her recent relapse and rehospitalization that the patient also had opiate dependence and reported that she was self-medicating. The patient requested to be restarted on her Suboxone. The patient was placed on a lower dose of Subutex. During the hospital stay the patient was noted to be either tired or may been a chair or slow in some movements. Efforts were made to reduce some of the sedating medicines the patient did not improve with baclofen she did not improve with Vistaril. The patient got A dose of Seroquel and was excessively sedated and reported that she could not tolerate more than 300 mg at night. In spite of the patient's level of sedation she continued to insist that she was anxious and that she was hearing voices but did not have suicidal ideation she was rather noncommittal on her treatment. She did not sign a release to contact her friend who she will be staying with but we did send a letter to Dr. Gonzalez with copies to her mental health providers. The patient had improvement in sedation at the time of discharge. She was not given a prescription for Subutex at the time of discharge as she was to be reevaluated by the local clinic - Time Spent with Patient Total time spent providing and/or coordinating discharge services: Less than 30 minutes Assessment and Plan - Patient/Caregiver Discharge Instructions Activity: resume usual activities as tolerated Diet: regular diet Additional Instructions: Avoid alcohol and drugs of abuse - Follow up Plan Follow up with: [facility] [Other] - 06/07/18 4:30 pm (FAX:[phone]) [facility] [Outside] - 06/12/18 10:00 am (The above appointment is with Patricia Beck for mental health and substance abuse counseling. Please bring photo ID and insurance card to your appointment.) Deyanira Carias [Advanced Practice Nurse] - 06/18/18 12:00 pm (The above appointment is with Deyanira Carias for primary care and medications. ) Functional capacity at discharge: independent ambulation Overall status at discharge: Stable Disposition: Home, Self-Care Quality - Multiple Antipsychotics Patient discharged on 2 or more antipsychotic medications: Yes - Justification Documentation of: Recommended plan to taper to monotherapy - Additional Details Additional Details: The patient had Risperdal Consta written for. This medicine is on the hospital formulary. But it was not in the hospital pharmacy. Consequently the recommendation is to go onn Risperdal Consta to improve compliance and hopefully reduce the need for oral risperidone and oral Seroquel Procedures - Procedures Procedures: Medication Management, Crisis Stabilization, Supportive Therapy, Group Therapy, Psychoeducational Therapy
== END 2018-06-07 15:00 | disposition home or self-care (01) | DRG 750 ==
LOC: EMEROO 21:40 → 1ANU 06-01 00:21
PROVIDERS: ADMIT Psychiatry & Neurology Forensic Psychiatry; ATTEND Psychiatry & Neurology Forensic Psychiatry

== ENCOUNTER 2019-03-04 16:51 | Observation (INO) ==
--- NOTE | 2019-03-04 17:28 | Emergency Department Note ---
Disposition Clinical Impression: Methamphetamine abuse, Altered mental status, Marijuana abuse, History of hepatitis, Peripheral edema, Hyperammonemia, Thrombocytopenia, Hepatic encephalopathy Disposition: Admitted As Inpatient Referrals: NONE,PCP [Primary Care Provider] - Forms: ED Satisfaction Letter General Adult HPI - General Chief complaint: ED Psychiatric Symptoms Stated complaint: Psych/drug addiction Source: patient Limitations: no limitations - History of Present Illness HPI Narrative: 33-year-old female comes emergency department with concerns for auditory hallucinosis, she has a history of psychiatric disease and drug abuse and 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 The patient also complains of upper and lower extremity and abdominal swelling. She also reports right flank pain. She reports her urine "stinks". There is no history of trauma or self- induced injury. No history of attempted overdose. There is no history of chest pain shortness of breath or fever. The patient does not usually take diuretic medications. She has no history of renal or heart failure but does have a history of hepatitis C. There is no history of icterus jaundice or fever. There is no history of suicidality or homicidality. There is no history of headache neck stiffness or rash. No trouble moving the arms or legs independently. Pain Scale: 9 - Related Data Home Medications Medication Instructions Recorded Confirmed Buprenorphine HCl/Naloxone HCl 1.5 tab SL DAILY 04/16/18 06/01/18 [Buprenorphin-Naloxon 8-2 mg Sl] Previous Rx's Medication Instructions Recorded Gabapentin [Neurontin] 800 mg PO TID 14 Days #60 capsule 06/07/18 Ibuprofen [Ibu] 600 mg PO TID 14 Days #14 tablet 06/07/18 Lisinopril [Zestril] 10 mg PO DAILY 14 Days #14 tablet 06/07/18 Quetiapine Fumarate [Seroquel] 200 mg PO HS 14 Days #14 tablet 06/07/18 RisperiDONE MICROSPHERES 12.5 mg IM Q2W 14 Days #1 syringe 06/07/18 [RisperDAL CONSTA] Sertraline [Zoloft] 150 mg PO DAILY 14 Days #14 tablet 06/07/18 risperiDONE [RisperDAL] 0.25 mg PO QID 14 Days #60 tablet 06/07/18 Allergies Allergy/AdvReac Type Severity Reaction Status Date / Time No Known Allergies Allergy Verified 05/31/18 21:47 All systems ED: reviewed and negative except as stated. 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 Absent: scleral icterus, periorbital swelling - ENT ENT exam: normal exam, normal oropharynx, mucous membranes moist - Neck Neck exam: Present: normal inspection, full ROM, trachea midline. Absent: tenderness - Chest Chest inspection: Present: normal inspection, symmetric chest wall rise. Absent: tenderness - Respiratory Respiratory exam: Present: normal lung sounds bilaterally, respiratory distress. Absent: prolonged expiratory phase - Cardiovascular Cardiovascular exam: Present: regular rate, normal rhythm, normal heart sounds - Abdominal Exam Abdominal exam: Present: soft, Non-Tender, normal bowel sounds. Absent: tenderness, distention, guarding, rebound, rigidity - Extremities Exam Extremities exam: Present: full ROM, normal capillary refill, other. Absent: tenderness, pedal edema (General edema noted in the upper extremities and hands,), joint swelling, calf tenderness - Back Exam Back exam: Present: normal inspection, full ROM. Absent: tenderness, CVA tend erness (R), CVA tenderness (L), vertebral tenderness - Neurological Exam Neurological exam: Present: alert, oriented X3, CN II-XII intact. Absent: motor sensory deficit - Psychiatric Psychiatric exam: Present: flat affect - Skin Skin exam: Present: warm, dry, intact, normal color Course Vital Signs Temperature 98.0 F 03/04/19 17:00 Pulse Rate 67 03/04/19 17:00 Respiratory Rate 16 03/04/19 17:00 Blood Pressure 133/79 03/04/19 17:00 O2 Sat by Pulse Oximetry 95 03/04/19 17:00 Temperature 98.0 F 03/04/19 17:00 Pulse Rate 61 03/05/19 00:11 Respiratory Rate 13 03/05/19 00:11 Blood Pressure 134/95 03/05/19 00:11 O2 Sat by Pulse Oximetry 100 03/05/19 00:11 Oxygen Delivery Oxygen Delivery Room Air Medical Decision Making - MDM Narrative Medical decision making narrative: Per the triage note the patient had an element of hallucinosis. Her urine toxicology is positive for amphetamines, hyperammonemia is noted. The patient does display an element of peripheral edema. She has a history of hepatitis C. Thrombocytopenia noted. CT scan of the abdomen and pelvis were ordered and are pending final interpretation. There has been some difficulty transmitting the images and we have notified CT staff who were attempting to resubmit. The patient has a history of psychiatric disease, drug abuse, and appears be somewhat confused, there is a history of hallucinosis. I suspect drug-related effect and or hepatic encephalopathy. On my review the CT scan there appeared to be changes suggestive of liver disease and splenomegaly. The patient does have an element of thrombocytopenia likely secondary to splenic sequestration. The patient remained stable in the emergency department. Given significant metabolic abnormalities with reported confusion and notable abnormal urine tox studies with what appears to be new onset edema and abdominal CT changes I thought it be appropriate to admit the patient to the hospital. I discussed the case with the hospitalist on-call who is excepted the patient to his care. Lactulose was ordered. The patient is agreeable. Final CT interpretation pending. - Lab Data Lab results reviewed: Yes I reviewed the patient's lab results. Result diagrams: 03/04/19 17:56 03/04/19 17:56 Lab Results 03/04/19 03/04/19 03/04/19 Range/Units 17:56 17:56 17:56 WBC 6.1 (4.3-11.1) K/mcL RBC 4.11 (3.82-4.97) M/mcL Hgb 13.1 (11.5-15.4) g/dL Hct 37.1 (35.3-44.9) % MCV 90.3 (83.0-100.0) fL MCH 31.9 (28.0-33.3) pg MCHC 35.3 (31.6-35.5) g/dL RDW 12.8 (11.5-14.5) % Plt Count 100 L (140-400) K/mcL MPV 13.0 H (9.4-12.4) fL Immature Gran % 0.2 (0-4) % Seg Neutrophils % 36.7 % Lymphocytes % 50.7 % Monocytes % 8.6 % Eosinophils % 2.9 % Basophils % 0.9 % Neutrophils # 2.2 (1.6-8.9) K/mcL Lymphocytes # 3.1 (0.6-4.6) K/mcL Monocytes # 0.5 (0.0-1.3) K/mcL Eosinophils # 0.2 (0.0-0.6) K/mcL Basophils # 0.1 (0.0-0.2) K/mcL Platelet Estimate Decreased L (Normal) PT 12.3 H (9.4-12.1) Seconds INR 1.1 APTT 35.6 (26.0-36.0) Seconds Sodium (136-145) mEq/L Potassium (3.5-5.1) mEq/L Chloride (98-107) mEq/L Carbon Dioxide (23-29) mEq/L BUN (6-20) mg/dL Creatinine (0.60-1.20) mg/dL Est GFR ( Amer) (> 60) Est GFR (Non-Af Amer) (> 60) BUN/Creatinine Ratio (6-26) Glucose (70-105) mg/dL Calculated Osmolality (280-300) Lactic Acid (0.5-2.2) mmol/L Calcium (8.6-10.3) mg/dL Total Bilirubin (0.3-1.0) mg/dL Direct Bilirubin (0.0-0.2) mg/dL Indirect Bilirubin (0.0-1.2) mg/dL AST (13-39) Units/L ALT (7-52) Units/L Alkaline Phosphatase (34-104) Units/L Ammonia (16-53) mcmol/L Troponin I (< 0.04) ng/mL C-Reactive Protein (Less than 10) mg/L B-Natriuretic Peptide (Less than 100) pg/mL Serum Total Protein (6.4-8.9) g/dL Albumin (3.5-5.7) g/dL Globulin (2.4-3.5) g/dL Albumin/Globulin Ratio (1.1-2.2) Lipase (11-82) Units/L TSH (0.340-5.600) mcIU/mL Serum , Qual Negative (Negative) Urine Color (Yellow) Urine Clarity (Clear) Urine pH (5.0-8.0) pH Units Ur Specific [place] (1.010-1.025) Urine Protein (Neg-Trace) mg/dL Urine Glucose (UA) (Normal) mg/dL Urine Ketones (Negative) mg/dL Urine Blood (Negative) Urine Nitrite (Negative) Urine Bilirubin (Negative) Urine Urobilinogen (Normal) mg/dL Ur Leukocyte Esterase (Negative) Urine Microscopic RBC (0-3) per hpf Urine Microscopic WBC (0-3) per hpf Ur Squamous Epith Cells (None-Few) per lpf Ur Transition Epith Cell (None-Few) per hpf Urine Bacteria (None-Few) per hpf Salicylates (15.0-30.0) mg/dL Urine Opiates Screen (Iolafc=556) ng/mL Acetaminophen (10-20) mcg/mL Ur Barbiturates Screen (Uiynqm=372) ng/mL Ur Phencyclidine Scrn (Cutoff=25) ng/mL Ur Amphetamines Screen (Wdazmn=6615) ng/mL U Benzodiazepines Scrn (Kwsqlz=189) ng/mL Urine Cocaine Screen (Cutoff= 300) ng/mL U Marijuana (THC) Screen (Cutoff = 50) ng/mL Ur Drug Screen Interp Ethyl Alcohol (Less than 10) mg/dL 03/04/19 03/04/19 03/04/19 Range/Units 17:56 19:29 19:29 WBC (4.3-11.1) K/mcL RBC (3.82-4.97) M/mcL Hgb (11.5-15.4) g/dL Hct (35.3-44.9) % MCV (83.0-100.0) fL MCH (28.0-33.3) pg MCHC (31.6-35.5) g/dL RDW (11.5-14.5) % Plt Count (140-400) K/mcL MPV (9.4-12.4) fL Immature Gran % (0-4) % Seg Neutrophils % % Lymphocytes % % Monocytes % % Eosinophils % % Basophils % % Neutrophils # (1.6-8.9) K/mcL Lymphocytes # (0.6-4.6) K/mcL Monocytes # (0.0-1.3) K/mcL Eosinophils # (0.0-0.6) K/mcL Basophils # (0.0-0.2) K/mcL Platelet Estimate (Normal) PT (9.4-12.1) Seconds INR APTT (26.0-36.0) Seconds Sodium 142 (136-145) mEq/L Potassium 3.7 (3.5-5.1) mEq/L Chloride 107 (98-107) mEq/L Carbon Dioxide 19 L (23-29) mEq/L BUN 8 (6-20) mg/dL Creatinine 0.70 (0.60-1.20) mg/dL Est GFR ( Amer) > 60 (> 60) Est GFR (Non-Af Amer) > 60 (> 60) BUN/Creatinine Ratio 11 (6-26) Glucose 101 (70-105) mg/dL Calculated Osmolality 292 (280-300) Lactic Acid (0.5-2.2) mmol/L Calcium 9.5 (8.6-10.3) mg/dL Total Bilirubin 0.9 (0.3-1.0) mg/dL Direct Bilirubin 0.3 H (0.0-0.2) mg/dL Indirect Bilirubin 0.6 (0.0-1.2) mg/dL AST 95 H (13-39) Units/L ALT 66 H (7-52) Units/L Alkaline Phosphatase 92 (34-104) Units/L Ammonia (16-53) mcmol/L Troponin I < 0.03 (< 0.04) ng/mL C-Reactive Protein < 5 (Less than 10) mg/L B-Natriuretic Peptide 32 (Less than 100) pg/mL Serum Total Protein 7.1 (6.4-8.9) g/dL Albumin 4.0 (3.5-5.7) g/dL Globulin 3.1 (2.4-3.5) g/dL Albumin/Globulin Ratio 1.3 (1.1-2.2) Lipase 12 (11-82) Units/L TSH 0.547 (0.340-5.600) mcIU/mL Serum , Qual (Negative) Urine Color (Yellow) Urine Clarity (Clear) Urine pH (5.0-8.0) pH Units Ur Specific [place] (1.010-1.025) Urine Protein (Neg-Trace) mg/dL Urine Glucose (UA) (Normal) mg/dL Urine Ketones (Negative) mg/dL Urine Blood (Negative) Urine Nitrite (Negative) Urine Bilirubin (Negative) Urine Urobilinogen (Normal) mg/dL Ur Leukocyte Esterase (Negative) Urine Microscopic RBC (0-3) per hpf Urine Microscopic WBC (0-3) per hpf Ur Squamous Epith Cells (None-Few) per lpf Ur Transition Epith Cell (None-Few) per hpf Urine Bacteria (None-Few) per hpf Salicylates < 2.5 L (15.0-30.0) mg/dL Urine Opiates Screen (Sjmqyb=918) ng/mL Acetaminophen < 10 L (10-20) mcg/mL Ur Barbiturates Screen (Hvvate=245) ng/mL Ur Phencyclidine Scrn (Cutoff=25) ng/mL Ur Amphetamines Screen (Taixue=2821) ng/mL U Benzodiazepines Scrn (Ircbuy=430) ng/mL Urine Cocaine Screen (Cutoff= 300) ng/mL U Marijuana (THC) Screen (Cutoff = 50) ng/mL Ur Drug Screen Interp Ethyl Alcohol < 10 (Less than 10) mg/dL 03/04/19 03/04/19 03/04/19 Range/Units 19:29 19:29 20:06 WBC (4.3-11.1) K/mcL RBC (3.82-4.97) M/mcL Hgb (11.5-15.4) g/dL Hct (35.3-44.9) % MCV (83.0-100.0) fL MCH (28.0-33.3) pg MCHC (31.6-35.5) g/dL RDW (11.5-14.5) % Plt Count (140-400) K/mcL MPV (9.4-12.4) fL Immature Gran % (0-4) % Seg Neutrophils % % Lymphocytes % % Monocytes % % Eosinophils % % Basophils % % Neutrophils # (1.6-8.9) K/mcL Lymphocytes # (0.6-4.6) K/mcL Monocytes # (0.0-1.3) K/mcL Eosinophils # (0.0-0.6) K/mcL Basophils # (0.0-0.2) K/mcL Platelet Estimate (Normal) PT (9.4-12.1) Seconds INR APTT (26.0-36.0) Seconds Sodium (136-145) mEq/L Potassium (3.5-5.1) mEq/L Chloride (98-107) mEq/L Carbon Dioxide (23-29) mEq/L BUN (6-20) mg/dL Creatinine (0.60-1.20) mg/dL Est GFR ( Amer) (> 60) Est GFR (Non-Af Amer) (> 60) BUN/Creatinine Ratio (6-26) Glucose (70-105) mg/dL Calculated Osmolality (280-300) Lactic Acid 0.7 (0.5-2.2) mmol/L Calcium (8.6-10.3) mg/dL Total Bilirubin (0.3-1.0) mg/dL Direct Bilirubin (0.0-0.2) mg/dL Indirect Bilirubin (0.0-1.2) mg/dL AST (13-39) Units/L ALT (7-52) Units/L Alkaline Phosphatase (34-104) Units/L Ammonia 106 H (16-53) mcmol/L Troponin I (< 0.04) ng/mL C-Reactive Protein (Less than 10) mg/L B-Natriuretic Peptide (Less than 100) pg/mL Serum Total Protein (6.4-8.9) g/dL Albumin (3.5-5.7) g/dL Globulin (2.4-3.5) g/dL Albumin/Globulin Ratio (1.1-2.2) Lipase (11-82) Units/L TSH (0.340-5.600) mcIU/mL Serum , Qual (Negative) Urine Color Dark Yellow (Yellow) Urine Clarity Cloudy A (Clear) Urine pH 5.5 (5.0-8.0) pH Units Ur Specific [place] 1.022 (1.010-1.025) Urine Protein Negative (Neg-Trace) mg/dL Urine Glucose (UA) Normal (Normal) mg/dL Urine Ketones Negative (Negative) mg/dL Urine Blood Negative (Negative) Urine Nitrite Negative (Negative) Urine Bilirubin Small H (Negative) Urine Urobilinogen >=8.0 H (Normal) mg/dL Ur Leukocyte Esterase Moderate H (Negative) Urine Microscopic RBC 0-3 (0-3) per hpf Urine Microscopic WBC 5-15 H (0-3) per hpf Ur Squamous Epith Cells Few (None-Few) per lpf Ur Transition Epith Cell Few (None-Few) per hpf Urine Bacteria Many H (None-Few) per hpf Salicylates (15.0-30.0) mg/dL Urine Opiates Screen (Bugxtk=580) ng/mL Acetaminophen (10-20) mcg/mL Ur Barbiturates Screen (Knnfzx=101) ng/mL Ur Phencyclidine Scrn (Cutoff=25) ng/mL Ur Amphetamines Screen ([place]=6962) ng/mL U Benzodiazepines Scrn (Yoypqy=515) ng/mL Urine Cocaine Screen (Cutoff= 300) ng/mL U Marijuana (THC) Screen (Cutoff = 50) ng/mL Ur Drug Screen Interp Ethyl Alcohol (Less than 10) mg/dL 03/04/19 Range/Units 20:06 WBC (4.3-11.1) K/mcL RBC (3.82-4.97) M/mcL Hgb (11.5-15.4) g/dL Hct (35.3-44.9) % MCV (83.0-100.0) fL MCH (28.0-33.3) pg MCHC (31.6-35.5) g/dL RDW (11.5-14.5) % Plt Count (140-400) K/mcL MPV (9.4-12.4) fL Immature Gran % (0-4) % Seg Neutrophils % % Lymphocytes % % Monocytes % % Eosinophils % % Basophils % % Neutrophils # (1.6-8.9) K/mcL Lymphocytes # (0.6-4.6) K/mcL Monocytes # (0.0-1.3) K/mcL Eosinophils # (0.0-0.6) K/mcL Basophils # (0.0-0.2) K/mcL Platelet Estimate (Normal) PT (9.4-12.1) Seconds INR APTT (26.0-36.0) Seconds Sodium (136-145) mEq/L Potassium (3.5-5.1) mEq/L Chloride (98-107) mEq/L Carbon Dioxide (23-29) mEq/L BUN (6-20) mg/dL Creatinine (0.60-1.20) mg/dL Est GFR ( Amer) (> 60) Est GFR (Non-Af Amer) (> 60) BUN/Creatinine Ratio (6-26) Glucose (70-105) mg/dL Calculated Osmolality (280-300) Lactic Acid (0.5-2.2) mmol/L Calcium (8.6-10.3) mg/dL Total Bilirubin (0.3-1.0) mg/dL Direct Bilirubin (0.0-0.2) mg/dL Indirect Bilirubin (0.0-1.2) mg/dL AST (13-39) Units/L ALT (7-52) Units/L Alkaline Phosphatase (34-104) Units/L Ammonia (16-53) mcmol/L Troponin I (< 0.04) ng/mL C-Reactive Protein (Less than 10) mg/L B-Natriuretic Peptide (Less than 100) pg/mL Serum Total Protein (6.4-8.9) g/dL Albumin (3.5-5.7) g/dL Globulin (2.4-3.5) g/dL Albumin/Globulin Ratio (1.1-2.2) Lipase (11-82) Units/L TSH (0.340-5.600) mcIU/mL Serum , Qual (Negative) Urine Color (Yellow) Urine Clarity (Clear) Urine pH (5.0-8.0) pH Units Ur Specific [place] (1.010-1.025) Urine Protein (Neg-Trace) mg/dL Urine Glucose (UA) (Normal) mg/dL Urine Ketones (Negative) mg/dL Urine Blood (Negative) Urine Nitrite (Negative) Urine Bilirubin (Negative) Urine Urobilinogen (Normal) mg/dL Ur Leukocyte Esterase (Negative) Urine Microscopic RBC (0-3) per hpf Urine Microscopic WBC (0-3) per hpf Ur Squamous Epith Cells (None-Few) per lpf Ur Transition Epith Cell (None-Few) per hpf Urine Bacteria (None-Few) per hpf Salicylates (15.0-30.0) mg/dL Urine Opiates Screen Negative (Dsfdwr=647) ng/mL Acetaminophen (10-20) mcg/mL Ur Barbiturates Screen Negative (Yhmkee=124) ng/mL Ur Phencyclidine Scrn Negative (Cutoff=25) ng/mL Ur Amphetamines Screen Positive H (Tnyhih=5803) ng/mL U Benzodiazepines Scrn Negative (Kpiowf=273) ng/mL Urine Cocaine Screen Negative (Cutoff= 300) ng/mL U Marijuana (THC) Screen Positive H (Cutoff = 50) ng/mL Ur Drug Screen Interp See Below Ethyl Alcohol (Less than 10) mg/dL - Radiology Data Radiology results reviewed: Yes I reviewed the patient's radiology results.
[2019-03-04] MEDS ORDERED: Isovue-370 500 ML BOTTLE IVP ONE (17:48)
[2019-03-04 18:50] LABS: INR 1.1; Prothrombin Time 12.3 Seconds (9.4-12.1)
[2019-03-04 18:53] LABS: Activated Partial Thrombo Time 35.6 Seconds (26.0-36.0)
[2019-03-04 19:04] LABS: Hematocrit 37.1 % (35.3-44.9); Hemoglobin 13.1 g/dL (11.5-15.4); Mean Corpuscular HGB Conc 35.3 g/dL (31.6-35.5); Mean Corpuscular Hemoglobin 31.9 pg (28.0-33.3); Mean Corpuscular Volume 90.3 fL (83.0-100.0); Platelet Count 100 K/mcL (140-400); Red Blood Count 4.11 M/mcL (3.82-4.97); Red Cell Distribution Width 12.8 % (11.5-14.5)
[2019-03-04 19:06] LABS: Basophils # 0.1 K/mcL (0.0-0.2); Basophils % 0.9 %; Eosinophils # 0.2 K/mcL (0.0-0.6); Eosinophils % 2.9 %; Immature Granulocytes % 0.2 % (0-4); Lymphocytes # 3.1 K/mcL (0.6-4.6); Lymphocytes % 50.7 %; Monocytes # 0.5 K/mcL (0.0-1.3); Monocytes % 8.6 %; Neutrophils # 2.2 K/mcL (1.6-8.9); Segmented Neutrophils % 36.7 %
[2019-03-04 19:20] LABS: Platelet Estimate Decreased (Normal)
[2019-03-04 19:24] LABS: Thyroid Stimulating Hormone 0.547 mcIU/mL (0.340-5.600)
[2019-03-04 20:20] LABS: Acetaminophen < 10 mcg/mL (10-20); Alanine Aminotransferase 66 Units/L (7-52); Albumin/Globulin Ratio 1.3 (1.1-2.2); Alkaline Phosphatase 92 Units/L (34-104); Aspartate Amino Transferase 95 Units/L (13-39); BUN/Creatinine Ratio 11 (6-26); Bilirubin,Direct 0.3 mg/dL (0.0-0.2); Bilirubin,Indirect 0.6 mg/dL (0.0-1.2); Bilirubin,Total 0.9 mg/dL (0.3-1.0); Blood Urea Nitrogen 8 mg/dL (6-20); C-Reactive Protein < 5 mg/L (Less than 10); Calcium 9.5 mg/dL (8.6-10.3); Carbon Dioxide 19 mEq/L (23-29); Chloride 107 mEq/L (98-107); Ethanol < 10 mg/dL (Less than 10); Globulin 3.1 g/dL (2.4-3.5); Glucose 101 mg/dL (70-105); Lipase 12 Units/L (11-82); Osmolality,Calculated 292 (280-300); Potassium 3.7 mEq/L (3.5-5.1); Salicylate < 2.5 mg/dL (15.0-30.0); Sodium 142 mEq/L (136-145); Total Protein 7.1 g/dL (6.4-8.9); eGFR For Non-African Americans > 60 (> 60)
[2019-03-04 20:24] LABS: Bilirubin,Urine Small (Negative); Blood,Urine Negative (Negative); Clarity,Urine Cloudy (Clear); Color,Urine Dark Yellow (Yellow); Glucose,Urine (UA) Normal (Normal); Ketones,Urine Negative (Negative); Leukocyte Esterase,Urine Moderate (Negative); Nitrite,Urine Negative (Negative); PH,Urine 5.5 pH Units (5.0-8.0); Protein,Urine Negative (Neg-Trace); Specific Gravity,Urine 1.022 (1.010-1.025); Urobilinogen,Urine >=8.0 mg/dL (Normal)
[2019-03-04 20:43] LABS: Amphetamine Screen,Urine Positive ng/mL (Cutoff=1000); Barbiturate Screen,Urine Negative ng/mL (Cutoff=200); Benzodiazepines Screen,Urine Negative ng/mL (Cutoff=200); Cannabinoid Screen,Urine Positive ng/mL (Cutoff = 50); Cocaine Screen,Urine Negative ng/mL (Cutoff= 300); Opiate Screen,Urine Negative ng/mL (Cutoff=300); Phencyclidine Screen,Urine Negative ng/mL (Cutoff=25)
[2019-03-04 20:51] LABS: Bacteria,Urine Many per hpf (None-Few); RBC,Urine 0-3 per hpf (0-3); Squamous Epithelial Cell,Urine Few per lpf (None-Few); Transitional Epi Cells,Urine Few per hpf (None-Few)
[2019-03-05] MEDS ORDERED: Lactulose Oral Soln 20 GM/30 ML UDC PO ONE (00:44)
[2019-03-05] MEDS ORDERED: Naloxone 0.4 MG/ML INJ IVP PRN (02:00)
--- NOTE | 2019-03-05 02:13 | Internal Med History&Physical ---
<Jes Sherwood - Last Filed: 03/05/19 03:14> Date of Encounter: 03/05/19 Time of Encounter: 01:30 Internal Medicine - H&P: HPI Chief complaint: not feeling well History of present illness: Ms. Kilgore is a 33 year old female past medical history of depression, h epatitis C, hypertension, schizoaffective bipolar disease, IV drug use who was presented to the ED complaining of not feeling well. She is an extremely poor historian and does not want to elicit much history. She has no specific complaints or concerns just reports overall she has had decreased energy and does not feel well. She is currently homeless and reports not taking her home medications. She has history of substance abuse, including IV drug use and last used 1 week ago. Toxicology shows marijuana and amphetamine. She denies ever attaining any hepatitis C treatment after her diagnosis 4 years ago. She is denying fever, chills, nausea, emesis, abdominal pain, dysuria, hematuria. In the ED she was reported to have low platelets of 100 which appears to be chronic. She was also noted to have elevated ALT and AST which appears to be chronic. Her ammonia is noted to be 106. Her urinalysis shows many bacteria with leukocyte esterase. Past Med Surg Social Fam HX - Past Medical History Medical history: hepatitis, hypertension, seizures Additional medical history: drug user Psychiatric history: bipolar, depression, previous psychiatric hospitalization - Past Surgical History Surgical History: non-contributory, , other Additional surgical history: neck gland removed - Social History Smoking Status: Current every day smoker Packs per day: 1 Smokeless Tobacco Status: No Alcohol use: none Drug use: methamphetamine, IV Drug Use, other - Family History Mother Hx Family Cardiac Disorders: Yes Internal Medicine - H&P: Meds RX: Buprenorphine HCl/Naloxone HCl [Buprenorphin-Naloxon 8-2 mg Sl] 1.5 tab SL DAILY 04/16/18 [History] RX: Gabapentin [Neurontin] 800 mg PO TID 14 Days #60 capsule 06/07/18 [Rx] RX: Ibuprofen [Ibu] 600 mg PO TID 14 Days #14 tablet 06/07/18 [Rx] RX: Lisinopril [Zestril] 10 mg PO DAILY 14 Days #14 tablet 06/07/18 [Rx] RX: Quetiapine Fumarate [Seroquel] 200 mg PO HS 14 Days #14 tablet 06/07/18 [Rx] RX: RisperiDONE MICROSPHERES [RisperDAL CONSTA] 12.5 mg IM Q2W 14 Days #1 syringe 06/07/18 [Rx] RX: Sertraline [Zoloft] 150 mg PO DAILY 14 Days #14 tablet 06/07/18 [Rx] RX: risperiDONE [RisperDAL] 0.25 mg PO QID 14 Days #60 tablet 06/07/18 [Rx] Allergy/AdvReac Type Severity Reaction Status Date / Time No Known Allergies Allergy Verified 05/31/18 21:47 All Systems PM: A 10-system review of systems was performed and is negative for pertinent findings except as documented above in the HPI. Review of systems: Patient was an extremely poor historian - Constitutional Constitutional: fatigue, no chills, no fever(s), no weakness - EENT Eyes: no change in vision, no loss of vision Nose, mouth and throat: no dysphagia, no odynophagia - Cardiovascular Cardiovascular ROS IM: no chest pain, no dyspnea, no dyspnea on exertion - Respiratory Respiratory: no cough, no dyspnea, no wheezing - Gastrointestinal Gastrointestinal: no abdominal pain, no constipation, no diarrhea, no nausea - Genitourinary Genitourinary: no dysuria, no hematuria, no pelvic pain - Musculoskeletal Musculoskeletal ROS IM: no neck pain, no numbness - Neurological Neurological ROS: no abnormal speech, no numbness, no weakness - Psychiatric Psychiatric: depression, other (bipolar) - Hematologic/Lymphatic Hematologic/Lymphatic: no easy bleeding, no easy bruising - Constitutional Vitals: Temp Pulse Resp BP Pulse Ox 98.0 F 61 14 134/100 100 03/04/19 17:00 03/05/19 00:11 03/05/19 01:13 03/05/19 01:13 03/05/19 00:11 Exam: Gen: Vitals noted. No acute distress. Appears comfortable. Eyes: anicteric sclerae, moist conjunctivae; no lid-lag HENT: Atraumatic; oropharynx clear with moist mucous membranes and no mucosal ulcerations; normal hard and soft palate poor dental carries Neck: Trachea midline; supple, no thyromegaly or lymphadenopathy Cardiac: RRR, no murmur, +S1/S2. No JVD noted. Pulmonary: CTA bilaterally, no wheezes, rales or rhonchi, equal chest expansion Abdomen: soft, nontender, no guarding. No masses, mild hepatomegaly appreciated MSK: ROM intact, no joint swelling noted Extremities: +1 pitting edema bilateral lower extremities, nontender calf Skin: Normal temperature, turgor; no rash, ulcers or subcutaneous nodules Neuro: moves all extremities, no focal deficits. Psych: Dull affect and mood A&Ox3 Internal Med - H&P Results - Labs CBC & Chem 7: 03/04/19 17:56 03/04/19 17:56 Labs: Short CBC 03/04/19 Range/Units 17:56 WBC 6.1 (4.3-11.1) K/mcL Hgb 13.1 (11.5-15.4) g/dL Hct 37.1 (35.3-44.9) % Plt Count 100 L (140-400) K/mcL Neutrophils # 2.2 (1.6-8.9) K/mcL BMP 03/04/19 17:56 Sodium 142 Potassium 3.7 Chloride 107 Carbon Dioxide 19 L BUN 8 Creatinine 0.70 Glucose 101 Calcium 9.5 Cardiac Enzymes 03/04/19 Range/Units 19:29 Troponin I < 0.03 (< 0.04) ng/mL Liver Function 03/04/19 Range/Units 17:56 Total Bilirubin 0.9 (0.3-1.0) mg/dL Direct Bilirubin 0.3 H (0.0-0.2) mg/dL AST 95 H (13-39) Units/L ALT 66 H (7-52) Units/L Alkaline Phosphatase 92 (34-104) Units/L Albumin 4.0 (3.5-5.7) g/dL Urine 03/04/19 Range/Units 20:06 Urine Color Dark Yellow (Yellow) Urine Clarity Cloudy A (Clear) Urine pH 5.5 (5.0-8.0) pH Units Ur Specific [place] 1.022 (1.010-1.025) Urine Protein Negative (Neg-Trace) mg/dL Urine Glucose (UA) Normal (Normal) mg/dL - Impressions ITS Impressions Chest X-Ray 03/04/19 17:47 IMPRESSION: Negative chest radiographs. D/ / Mandeep Dugan MD / Mandeep Dugan MD Interpreting Provider: Mandeep Dugan MD Abdomen/Pelvis CT 03/04/19 17:48 IMPRESSION: No acute findings. D/ / Mandeep Dugan MD / Mandeep Dugan MD Interpreting Provider: Mandeep Dugan MD - Assessment and Plan (1) Hyperammonemia Current Visit: Yes Status: Acute Assessment and plan: Mildly elevated ammonia 106. Could be secondary to her chronic liver disease Does not need to be trended as she is not having altered mental status. (2) Mood disorder Current Visit: No Status: Acute Assessment and plan: History of depression and schizoaffective disorder. She reports that she is homeless and does not know if she takes any of her home medications. 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 She reports IV drug use but does not elaborate as to which drugs she used in IV form. (4) Marijuana abuse Current Visit: Yes Status: Acute Assessment and plan: History of substance use. Toxicology shows marijuana (5) Peripheral edema Current Visit: Yes Status: Acute Assessment and plan: Noted to have +1 pitting edema bilateral lower extremities. Her albumin and protein is within normal limits. BMP is within normal limits. Likely secondary to her underlying liver disease. (6) Hepatitis C Current Visit: Yes Status: Chronic Assessment and plan: History of hepatitis c, was diagnosed in 2014. Would benefit from outpatient gastroenterology follow-up Qualifiers: Viral hepatitis chronicity: chronic Hepatic coma status: without hepatic coma Qualified Code(s): B18.2 - Chronic viral hepatitis C (7) Thrombocytopenia Current Visit: Yes Status: Chronic Assessment and plan: Platelets are noted to be 100. Hemoglobin is stable Appears to be chronic and likely secondary to her liver disease. Currently no evidence of bleeding. Should require outpatient follow-up with GI for her liver dysfunction (8) Tobacco abuse Current Visit: Yes Status: Acute Assessment and plan: Current smoker. [id number] history. (9) DVT prophylaxis Current Visit: No Status: Acute Assessment and plan: scds (10) Hypertension Current Visit: Yes Status: Acute Assessment and plan: Continue home lisinopril Qualifiers: Hypertension type: essential hypertension Qualified Code(s): I10 - Essential (primary) hypertension - Time Spent With Patient Total time spent is greater than 50% in coordination of care (as documented) at patient's floor/unit and/or counseling patient: Newton Erickson - Last Filed: 03/05/19 04:19> Date of Encounter: 03/05/19 Internal Medicine - H&P: HPI History of present illness: Ms. Kilgore is a 33 year old female All Systems PM: A 10-system review of systems was performed and is negative for pertinent findings except as documented above in the HPI. - Constitutional Vitals: Temp Pulse Resp BP Pulse Ox 97.4 F L 68 16 132/68 95 03/05/19 04:12 03/05/19 04:12 03/05/19 04:12 03/05/19 04:12 03/05/19 04:12 Internal Med - H&P Results - Labs CBC & Chem 7: 03/04/19 17:56 03/04/19 17:56 Labs: Short CBC 03/04/19 Range/Units 17:56 WBC 6.1 (4.3-11.1) K/mcL Hgb 13.1 (11.5-15.4) g/dL Hct 37.1 (35.3-44.9) % Plt Count 100 L (140-400) K/mcL Neutrophils # 2.2 (1.6-8.9) K/mcL BMP 03/04/19 17:56 Sodium 142 Potassium 3.7 Chloride 107 Carbon Dioxide 19 L BUN 8 Creatinine 0.70 Glucose 101 Calcium 9.5 Cardiac Enzymes 03/04/19 Range/Units 19:29 Troponin I < 0.03 (< 0.04) ng/mL Liver Function 03/04/19 Range/Units 17:56 Total Bilirubin 0.9 (0.3-1.0) mg/dL Direct Bilirubin 0.3 H (0.0-0.2) mg/dL AST 95 H (13-39) Units/L ALT 66 H (7-52) Units/L Alkaline Phosphatase 92 (34-104) Units/L Albumin 4.0 (3.5-5.7) g/dL Urine 03/04/19 Range/Units 20:06 Urine Color Dark Yellow (Yellow) Urine Clarity Cloudy A (Clear) Urine pH 5.5 (5.0-8.0) pH Units Ur Specific [place] 1.022 (1.010-1.025) Urine Protein Negative (Neg-Trace) mg/dL Urine Glucose (UA) Normal (Normal) mg/dL - Impressions ITS Impressions Chest X-Ray 03/04/19 17:47 IMPRESSION: Negative chest radiographs. D/ / Mandeep Dugan MD / Mandeep Dugan MD Interpreting Provider: Mandeep Dugan MD Abdomen/Pelvis CT 03/04/19 17:48 IMPRESSION: No acute findings. D/ / Mandeep Dugan MD / Mandeep Dugan MD Interpreting Provider: Mandeep Dugan MD - Assessment and Plan (1) Mood disorder Current Visit: No Status: Acute (2) DVT prophylaxis Current Visit: No Status: Acute (3) Methamphetamine abuse Current Visit: Yes Status: Acute (4) Marijuana abuse Current Visit: Yes Status: Acute (5) Peripheral edema Current Visit: Yes Status: Acute (6) Thrombocytopenia Current Visit: Yes Status: Chronic (7) Hyperammonemia Current Visit: Yes Status: Acute (8) Tobacco abuse Current Visit: Yes Status: Acute (9) Hepatitis C Current Visit: Yes Status: Chronic Qualifiers: Viral hepatitis chronicity: chronic Hepatic coma status: without hepatic coma Qualified Code(s): B18.2 - Chronic viral hepatitis C (10) Hypertension Current Visit: Yes Status: Acute Qualifiers: Hypertension type: essential hypertension Qualified Code(s): I10 - Essential (primary) hypertension - Time Spent With Patient Total time spent is greater than 50% in coordination of care (as documented) at patient's floor/unit and/or counseling patient: - Attending Attestation I performed a history and physical exam of the patient and discussed management with the resident. I reviewed the resident's note and agree with the documented findings and plan of care. The patient is clinically and hemodynamically stable requesing detox services however she is already plugged in to a methadone clinic. No acute symptoms appear to be present, in opposition to what was conveyed in the ER. Although ammonia elevation is noted, she is AAOx3 with no signs of encephalopathy. administrative services coordinator should provide assistance given her homeless state and seemingly wanting a place to sleep. LIANET PORTILLO.
[2019-03-05] MEDS ORDERED: traMADol 50 MG TABLET PO ONE (04:36)
[2019-03-05] MEDS: Ibuprofen 400 MG TABLET PO PRN (08:47)
--- NOTE | 2019-03-05 14:46 | Event Note ---
Date of Encounter: 03/05/19 Time of Encounter: 10:15 Ms Kilgore was hospitalized earlier this AM for substance withdrawal. She is currently homeless. At this time she is complaining of withdrawal symptoms. No fever or chills. Exam alert Mod distress - leg pain Heart reg and not tachy now No wheeze Abd soft Agree with assessment and plan as per H&P SW consult for inpatient treatment.
--- NOTE | 2019-03-05 15:13 | Electrocardiograph Report ---
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
[2019-03-06] MEDS: Gabapentin 400 MG CAPSULE PO SCH ×4 (00:38→21:47)
[2019-03-06] MEDS: risperiDONE 0.25 MG TABLET PO SCH ×3 (00:42→21:47)
[2019-03-06] MEDS: cefTRIAXone 1,000 MG in Water for inj. (sterile) 20 ML 10 ML IVP SCH (15:45)
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
[2019-03-06] MEDS: Lactulose Oral Soln 20 GM/30 ML UDC PO SCH (21:46)
[2019-03-07 04:37] LABS: Basophils % 0.5 %; Immature Granulocytes % 0.3 % (0-4)
[2019-03-07 04:38] LABS: Eosinophils # 0.1 K/mcL (0.0-0.6); Eosinophils % 3.1 %; Hematocrit 37.3 % (35.3-44.9); Hemoglobin 12.3 g/dL (11.5-15.4); Immature Platelets 13.3 % (1.1-6.1); Lymphocytes # 1.9 K/mcL (0.6-4.6); Lymphocytes % 49.2 %; Mean Corpuscular Hemoglobin 31.3 pg (28.0-33.3); Mean Corpuscular Volume 94.9 fL (83.0-100.0); Mean Platelet Volume 13.4 fL (9.4-12.4); Monocytes # 0.2 K/mcL (0.0-1.3); Monocytes % 4.9 %; Neutrophils # 1.6 K/mcL (1.6-8.9); Red Blood Count 3.93 M/mcL (3.82-4.97)
[2019-03-07 04:41] LABS: Platelet Count 89 K/mcL (140-400)
[2019-03-07 05:54] LABS: Alanine Aminotransferase 41 Units/L (7-52); Albumin 3.1 g/dL (3.5-5.7); Albumin/Globulin Ratio 1.3 (1.1-2.2); Alkaline Phosphatase 75 Units/L (34-104); Aspartate Amino Transferase 57 Units/L (13-39); BUN/Creatinine Ratio 17 (6-26); Bilirubin,Total 0.6 mg/dL (0.3-1.0); Blood Urea Nitrogen 11 mg/dL (6-20); Calcium 8.6 mg/dL (8.6-10.3); Carbon Dioxide 28 mEq/L (23-29); Chloride 108 mEq/L (98-107); Globulin 2.4 g/dL (2.4-3.5); Glucose 82 mg/dL (70-105); Osmolality,Calculated 296 (280-300); Potassium 3.9 mEq/L (3.5-5.1); Sodium 144 mEq/L (136-145); Total Protein 5.5 g/dL (6.4-8.9); eGFR For Non-African Americans > 60 (> 60)
[2019-03-07] MEDS: Lactulose Oral Soln 20 GM/30 ML UDC PO SCH ×2 (09:55→21:36)
[2019-03-07] MEDS: cefTRIAXone 1,000 MG in Water for inj. (sterile) 20 ML 10 ML IVP SCH (09:56)
--- NOTE | 2019-03-07 15:21 | Internal Med Progress Note ---
<Olivia Chavez E - Last Filed: 03/07/19 15:19> Hospitalist Progress Note - Encounter Date of Encounter: 03/07/19 Time of Encounter: 09:30 - Subjective Interval History: Rolly Avendaño is a 33-year-old female who presented to the ED complaining of not feeling well. She is medical history of depression, schizoaffective bipolar disease, hepatitis C, hypertension, and IV drug use that she is currently on methadone treatment for but she does not remember where she was getting treatment. On admission C stated that she had decreased energy and does not feel well and that she is homeless living in a [facility]. She is not currently taking her home medications. Her drug use includes IV drug use 1 week ago, toxicology showed marijuana and amphetamines Patient is reported to be somnolent most of the day according to nursing Patient was awake alert and oriented although had be prompted multiple times with questions. Patient is willing to seek inpatient treatment at facility in [place]. They will not have a bed available until Sunday. - Exam Vitals: Temp Pulse Resp BP Pulse Ox 97.6 F 66 19 94/60 90 03/07/19 11:21 03/07/19 11:21 03/07/19 11:21 03/07/19 11:21 03/07/19 11:21 Exam: General: Awake alert and oriented, had be prompted multiple times with questions as she did not want to answer, reported to be somnolent most of the day by nurses Head: normocephalic, atraumatic Eyes: ROCKY, no icterus Cardio: RRR, no mumurs, rubs, or gallops Respiratory: CTAB, no wheezing, rhonchi, rales Abd: normal bowel sounds, no gaurding or rigidity Extremties: no peda edema, pulses equal bilaterally, warm, noted that tops of hands are slightly swollen, they also have a few scabbed over areas Skin: warm, dry, intact - Assessment and Plan (1) Hyperammonemia Current Visit: Yes Status: Chronic Assessment and Plan: Her ammonia on admission was 106 This could be secondary to her hepatitis C Continue to monitor (2) Hypertension Current Visit: Yes Status: Chronic Assessment and Plan: Pressures currently stable Continue home lisinopril (3) Marijuana abuse Current Visit: Yes Status: Acute Assessment and Plan: Urine drug screen analysis showed positive for marijuana Social work seeking placement for her in inpatient rehabilitation for IV drug use amphetamines and other drugs (4) Methamphetamine abuse Current Visit: Yes Status: Acute Assessment and Plan: Urine drug screen positive for amphetamines Social work and getting her placed in inpatient rehabilitation and [place] on Sunday (5) Hepatitis C Current Visit: Yes Status: Chronic Assessment and Plan: Chronic condition She states she has not been treated for this Liver enzymes slightly elevated This appears to be chronic (6) Thrombocytopenia Current Visit: Yes Status: Chronic Assessment and Plan: Platelet count of 100 on admission Possibly due to her chronic diseases Continue to monitor (7) Mood disorder Current Visit: No Status: Acute Assessment and Plan: Patient history of depression, bipolar, schizoaffective disorder Restart home medications including Risperdal, Zoloft Risperdal was held today due to sedating effects (8) DVT prophylaxis Current Visit: No Status: Acute Assessment and Plan: SCDS DVT Prophylaxis: SC DS - Time Spent with Patient Total time spent is greater than 50% in coordination of care (as documented) at patient's floor/unit and/or counseling patient: Internal Medicine: Result - Labs CBC & Chem 7: 03/07/19 03:26 03/07/19 05:15 Labs: Short CBC 03/07/19 Range/Units 03:26 WBC 3.9 L (4.3-11.1) K/mcL Hgb 12.3 (11.5-15.4) g/dL Hct 37.3 (35.3-44.9) % Plt Count 89 L (140-400) K/mcL Neutrophils # 1.6 (1.6-8.9) K/mcL BMP 03/07/19 05:15 Sodium 144 Potassium 3.9 Chloride 108 H Carbon Dioxide 28 BUN 11 Creatinine 0.66 Glucose 82 Calcium 8.6 Liver Function 03/07/19 Range/Units 05:15 Total Bilirubin 0.6 (0.3-1.0) mg/dL AST 57 H (13-39) Units/L ALT 41 (7-52) Units/L Alkaline Phosphatase 75 (34-104) Units/L Albumin 3.1 L (3.5-5.7) g/dL - ABG Interpretation ABG results: PT/INR, D-dimer PT 12.3 Seconds (9.4-12.1) H 03/04/19 17:56 Consult Discharge Plan - Plan Referrals: Iliana Grijalva DO [Resident] - 03/14/19 10:40 am <Wil Carmona - Last Filed: 03/07/19 19:19> Hospitalist Progress Note - Encounter Date of Encounter: 03/07/19 - Exam Vitals: Temp Pulse Resp BP Pulse Ox 98.4 F 64 16 127/74 95 03/07/19 19:15 03/07/19 19:15 03/07/19 19:15 03/07/19 19:15 03/07/19 19:15 - Assessment and Plan (1) Mood disorder Current Visit: No Status: Acute (2) DVT prophylaxis Current Visit: No Status: Acute (3) Methamphetamine abuse Current Visit: Yes Status: Acute (4) Marijuana abuse Current Visit: Yes Status: Acute (5) Peripheral edema Current Visit: Yes Status: Acute (6) Thrombocytopenia Current Visit: Yes Status: Chronic (7) Hyperammonemia Current Visit: Yes Status: Chronic (8) Tobacco abuse Current Visit: Yes Status: Chronic (9) Hepatitis C Current Visit: Yes Status: Chronic (10) Hypertension Current Visit: Yes Status: Chronic (11) Hepatic encephalopathy Current Visit: Yes Status: Chronic (12) Polysubstance dependence Current Visit: No Status: Chronic (13) Schizoaffective disorder, bipolar type Current Visit: No Status: Chronic - Time Spent with Patient Total time spent is greater than 50% in coordination of care (as documented) at patient's floor/unit and/or counseling patient: Internal Medicine: Result - Labs CBC & Chem 7: 03/07/19 03:26 03/07/19 05:15 Labs: Short CBC 03/07/19 Range/Units 03:26 WBC 3.9 L (4.3-11.1) K/mcL Hgb 12.3 (11.5-15.4) g/dL Hct 37.3 (35.3-44.9) % Plt Count 89 L (140-400) K/mcL Neutrophils # 1.6 (1.6-8.9) K/mcL BMP 03/07/19 05:15 Sodium 144 Potassium 3.9 Chloride 108 H Carbon Dioxide 28 BUN 11 Creatinine 0.66 Glucose 82 Calcium 8.6 Liver Function 03/07/19 Range/Units 05:15 Total Bilirubin 0.6 (0.3-1.0) mg/dL AST 57 H (13-39) Units/L ALT 41 (7-52) Units/L Alkaline Phosphatase 75 (34-104) Units/L Albumin 3.1 L (3.5-5.7) g/dL - ABG Interpretation ABG results: PT/INR, D-dimer PT 12.3 Seconds (9.4-12.1) H 03/04/19 17:56 - Attending Attestation I examined this patient and my medical decision-making was reviewed with the Resident Physician on 03/07/19. I agree with the documented findings, disposition and treatment plan as described except to the extent set forth below. Ms Kilgore is currently admitted for acute polysubstance withdrawal. She is to go to rehab on Sunday. She remains moderate risk at this time. Ms Kilgore is more awake today. No fever or chills. No CP or SOB. Eating l unch. Exam alert. Comfortable Mucus membranes dry Heart reg and not tachy No wheeze abd soft Moves all extremities I/P 1. Polysubstance abuse 2. Hep C Plan rehab Sunday. <Olivia Chavez - Last Filed: 03/07/19 15:19> (2) Hypertension Qualifiers: Hypertension type: essential hypertension Qualified Code(s): I10 - Essential (primary) hypertension (5) Hepatitis C Qualifiers: Viral hepatitis chronicity: chronic Hepatic coma status: without hepatic coma Qualified Code(s): B18.2 - Chronic viral hepatitis C <Wil Carmona A - Last Filed: 03/07/19 19:19> (9) Hepatitis C Qualifiers: Viral hepatitis chronicity: chronic Hepatic coma status: without hepatic coma Qualified Code(s): B18.2 - Chronic viral hepatitis C (10) Hypertension Qualifiers: Hypertension type: essential hypertension Qualified Code(s): I10 - Essential (primary) hypertension
[2019-03-07 15:28] LABS: Amphetamine Screen,Urine Positive ng/mL (Cutoff=1000); Barbiturate Screen,Urine Negative ng/mL (Cutoff=200); Benzodiazepines Screen,Urine Negative ng/mL (Cutoff=200); Cannabinoid Screen,Urine Positive ng/mL (Cutoff = 50); Cocaine Screen,Urine Negative ng/mL (Cutoff= 300); Opiate Screen,Urine Negative ng/mL (Cutoff=300); Phencyclidine Screen,Urine Negative ng/mL (Cutoff=25)
[2019-03-07] MEDS: Gabapentin 400 MG CAPSULE PO SCH (21:37)
[2019-03-08] MEDS: Lactulose Oral Soln 20 GM/30 ML UDC PO SCH ×2 (08:49→20:41)
[2019-03-08] MEDS: cefTRIAXone 1,000 MG in Water for inj. (sterile) 20 ML 10 ML IVP SCH (08:49)
[2019-03-08] MEDS: Gabapentin 400 MG CAPSULE PO SCH ×3 (08:49→20:41)
[2019-03-08] MEDS: Ibuprofen 400 MG TABLET PO PRN (13:39)
--- NOTE | 2019-03-08 14:15 | Internal Med Progress Note ---
Addendum entered and electronically signed by Kim Reynoso DO 03/08/19 17:48: Urinary tract infection -uncomplicated -urinalysis growing E. coli -continue Rocephin day 3 which will complete treatment course for uncomplicated UTI Original Note: <Wil Carmona - Last Filed: 03/08/19 17:30> Hospitalist Progress Note - Encounter Date of Encounter: 03/08/19 - Exam Vitals: Temp Pulse Resp BP Pulse Ox 98.4 F 52 17 109/71 94 03/08/19 15:10 03/08/19 15:10 03/08/19 15:10 03/08/19 15:10 03/08/19 15:10 - Assessment and Plan (1) Mood disorder Current Visit: No Status: Acute (2) Polysubstance dependence Current Visit: No Status: Chronic (3) DVT prophylaxis Current Visit: No Status: Acute (4) Schizoaffective disorder, bipolar type Current Visit: No Status: Chronic (5) Methamphetamine abuse Current Visit: Yes Status: Acute (6) Marijuana abuse Current Visit: Yes Status: Acute (7) Peripheral edema Current Visit: Yes Status: Acute (8) Thrombocytopenia Current Visit: Yes Status: Chronic (9) Hepatic encephalopathy Current Visit: Yes Status: Chronic (10) Hyperammonemia Current Visit: Yes Status: Chronic (11) Tobacco abuse Current Visit: Yes Status: Chronic (12) Hepatitis C Current Visit: Yes Status: Chronic (13) Hypertension Current Visit: Yes Status: Chronic - Time Spent with Patient Total time spent is greater than 50% in coordination of care (as documented) at patient's floor/unit and/or counseling patient: Internal Medicine: Result - Labs CBC & Chem 7: 03/07/19 03:26 03/07/19 05:15 - ABG Interpretation ABG results: PT/INR, D-dimer PT 12.3 Seconds (9.4-12.1) H 03/04/19 17:56 Consult Discharge Plan - Plan Referrals: Iliana Grijalva DO [Resident] - 03/14/19 10:40 am - Attending Attestation I examined this patient and my medical decision-making was reviewed with the Resident Physician on 03/08/19. I agree with the documented findings, disposition and treatment plan as described except to the extent set forth below. Ms Kilgore is currently admitted for polysubstance abuse and withdrawal. She is to go to inpatient rehab. She remains moderate to high risk due to potential for worsening clinical status. Ms Kilgore feels OK. No fever or chills. No CP or SOB. Appetite OK. Exam alert Comfortable Mucus membranes dry Heart not tachy No wheeze No edema Abd soft I/P 1. Polysubstance abuse - to go to inpatient rehab Sunday 2. Withdrawal - seems to be doing better. Further diagnoses and plan as above. <Kim Reynoso - Last Filed: 03/08/19 17:44> Hospitalist Progress Note - Encounter Date of Encounter: 03/08/19 Time of Encounter: 13:40 - Subjective Interval History: Patient seen and examined at bedside. She is alert and oriented times 3. She denies fever, chills, chest pain, shortness of breath, cough, abdominal pain, di arrhea. She reported some bilateral lower leg pain. She agreed to have Tylenol. She requested to know the rehab facility she is going to. - Exam Vitals: Temp Pulse Resp BP Pulse Ox 98.5 F 81 17 117/71 96 03/08/19 11:50 03/08/19 11:50 03/08/19 11:50 03/08/19 11:50 03/08/19 11:50 Exam: Gen.: Vitals noted. No acute distress. AAOx3 HEENT: oropharynx clear, Normocephalic, atraumatic Neck: Supple. No adenopathy. Cardiac: RRR, no murmur, +S1/S2 Pulmonary: CTA bilaterally, no wheezes, rales or rhonchi, equal chest expansion Abdomen: soft, nontender, Bowel sounds noted, no guarding Extremities: no BLE edema, nontender calf, no cyanosis or clubbing Neuro: A&Ox3, moves all extremities, no focal deficits Psych: Appropriate mood and behavior - Assessment and Plan (1) Polysubstance dependence Current Visit: No Status: Chronic Assessment and Plan: Patient has known history of substance abuse including methamphetamines and marijuana -urine drug screen positive for amphetamines marijuana -social work has found to rehab facility for the patient be discharged to when able (2) Mood disorder Current Visit: No Status: Acute Assessment and Plan: Patient with history of depression, bipolar, schizoaffective disorder taking Risperdal and Zoloft. -Due to patient becoming somnolent the Risperdal was held to prevent sedating effects (3) Leukopenia Current Visit: Yes Status: Acute Assessment and Plan: Leukopenia -WBC 3.9 (6.1 on admission) -afebrile, hemodynamically stable -etiology and determined -will continue to monitor (4) Schizoaffective disorder, bipolar type Current Visit: No Status: Chronic Assessment and Plan: Known history schizoaffective disorder -Risperdal currently being held (5) Methamphetamine abuse Current Visit: Yes Status: Acute Assessment and Plan: Urine drug screen positive for methamphetamines (6) Marijuana abuse Current Visit: Yes Status: Acute Assessment and Plan: Urine drug screen positive for marijuana (7) Thrombocytopenia Current Visit: Yes Status: Chronic Assessment and Plan: Thrombocytopenia -platelets 89 (100) -likely secondary to chronic liver disease of hepatitis C -no obvious active bleeding -will continue to monitor (8) Hepatic encephalopathy Current Visit: Yes Status: Chronic Assessment and Plan: Resolved. (9) Hyperammonemia Current Visit: Yes Status: Chronic Assessment and Plan: Improved Elevated ammonia level 71 (98) -elevated levels likely secondary to chronic liver disease -patient is alert and oriented times 3 and not confused (10) Tobacco abuse Current Visit: Yes Status: Chronic Assessment and Plan: History of tobacco abuse (11) Hepatitis C Current Visit: Yes Status: Chronic Assessment and Plan: History of known hepatitis C. -She has mild elevation of liver enzymes which is chronic to her -will continue to monitor (12) Hypertension Current Visit: Yes Status: Chronic Assessment and Plan: History of hypertension taking lisinopril -blood pressure controlled -continue home medication (13) DVT prophylaxis Current Visit: No Status: Acute Assessment and Plan: SCD - Time Spent with Patient Total time spent is greater than 50% in coordination of care (as documented) at patient's floor/unit and/or counseling patient: Internal Medicine: Result - Labs CBC & Chem 7: 03/07/19 03:26 03/07/19 05:15 - ABG Interpretation ABG results: PT/INR, D-dimer PT 12.3 Seconds (9.4-12.1) H 03/04/19 17:56 <Wil Carmona - Last Filed: 03/08/19 17:30> (12) Hepatitis C Qualifiers: Viral hepatitis chronicity: chronic Hepatic coma status: without hepatic coma Qualified Code(s): B18.2 - Chronic viral hepatitis C (13) Hypertension Qualifiers: Hypertension type: essential hypertension Qualified Code(s): I10 - Essential (primary) hypertension <Kim Reynoso - Last Filed: 03/08/19 17:44> (11) Hepatitis C Qualifiers: Viral hepatitis chronicity: chronic Hepatic coma status: without hepatic coma Qualified Code(s): B18.2 - Chronic viral hepatitis C (12) Hypertension Qualifiers: Hypertension type: essential hypertension Qualified Code(s): I10 - Essential (primary) hypertension
[2019-03-09 01:18] LABS: Hemoglobin 12.2 g/dL (11.5-15.4)
[2019-03-09 01:20] LABS: Basophils % 0.6 %; Eosinophils # 0.2 K/mcL (0.0-0.6); Eosinophils % 3.2 %; Hematocrit 37.2 % (35.3-44.9); Immature Platelets 11.3 % (1.1-6.1); Lymphocytes # 2.1 K/mcL (0.6-4.6); Lymphocytes % 46.1 %; Mean Corpuscular HGB Conc 32.8 g/dL (31.6-35.5); Mean Corpuscular Hemoglobin 30.8 pg (28.0-33.3); Mean Corpuscular Volume 93.9 fL (83.0-100.0); Mean Platelet Volume 13.1 fL (9.4-12.4); Monocytes # 0.3 K/mcL (0.0-1.3); Red Blood Count 3.96 M/mcL (3.82-4.97); Red Cell Distribution Width 12.6 % (11.5-14.5); Segmented Neutrophils % 44.1 %
[2019-03-09 01:27] LABS: Platelet Count 87 K/mcL (140-400)
--- NOTE | 2019-03-09 08:11 | Internal Med Progress Note ---
Hospitalist Progress Note - Encounter Date of Encounter: 03/09/19 - Exam Vitals: Temp Pulse Resp BP Pulse Ox 97.5 F L 52 19 112/73 96 03/09/19 07:20 03/09/19 07:20 03/09/19 07:20 03/09/19 07:20 03/09/19 07:20 - Assessment and Plan (1) Mood disorder Current Visit: No Status: Acute (2) Polysubstance dependence Current Visit: No Status: Chronic (3) DVT prophylaxis Current Visit: No Status: Acute (4) Schizoaffective disorder, bipolar type Current Visit: No Status: Chronic (5) Methamphetamine abuse Current Visit: Yes Status: Acute (6) Marijuana abuse Current Visit: Yes Status: Acute (7) Thrombocytopenia Current Visit: Yes Status: Chronic (8) Hepatic encephalopathy Current Visit: Yes Status: Chronic (9) Hyperammonemia Current Visit: Yes Status: Chronic (10) Tobacco abuse Current Visit: Yes Status: Chronic (11) Hepatitis C Current Visit: Yes Status: Chronic (12) Hypertension Current Visit: Yes Status: Chronic (13) Leukopenia Current Visit: Yes Status: Acute - Time Spent with Patient Total time spent is greater than 50% in coordination of care (as documented) at patient's floor/unit and/or counseling patient: Internal Medicine: Result - Labs CBC & Chem 7: 03/09/19 01:01 03/07/19 05:15 Labs: Short CBC 03/09/19 Range/Units 01:01 WBC 4.6 (4.3-11.1) K/mcL Hgb 12.2 (11.5-15.4) g/dL Hct 37.2 (35.3-44.9) % Plt Count 87 L (140-400) K/mcL Neutrophils # 2.0 (1.6-8.9) K/mcL - ABG Interpretation ABG results: PT/INR, D-dimer PT 12.3 Seconds (9.4-12.1) H 03/04/19 17:56 Consult Discharge Plan - Plan Referrals: Iliana Grijalva DO [Resident] - 03/14/19 10:40 am (11) Hepatitis C Qualifiers: Viral hepatitis chronicity: chronic Hepatic coma status: without hepatic coma Qualified Code(s): B18.2 - Chronic viral hepatitis C (12) Hypertension Qualifiers: Hypertension type: essential hypertension Qualified Code(s): I10 - Essential (primary) hypertension
[2019-03-09] MEDS: Lactulose Oral Soln 20 GM/30 ML UDC PO SCH (10:09)
[2019-03-09] MEDS: Gabapentin 400 MG CAPSULE PO SCH ×2 (10:10→14:21)
[2019-03-09 11:56] VITALS: BP 118/70
--- NOTE | 2019-03-09 17:54 | Discharge Summary ---
- NOTES TO OUTPATIENT PROVIDER Notes to Outpatient Provider: Pt presented requesting drug rehab. Left AMA after finding out restrictions (after staying here 4 days). Orders not resulted at time of discharge: Pending orders 03/04/19 19:29 Culture,Blood [BC] Stat Date of Encounter: 03/09/19 Time of Encounter: 11:30 - Discharge Diagnosis (1) Mood disorder Priority: Secondary Status: Acute (2) Polysubstance dependence Priority: Secondary Status: Chronic (3) Schizoaffective disorder, bipolar type Priority: Secondary Status: Chronic (4) Methamphetamine abuse Priority: Primary Status: Acute (5) Marijuana abuse Priority: Secondary Status: Acute (6) Thrombocytopenia Priority: Secondary Status: Chronic (7) Hepatic encephalopathy Priority: Secondary Status: Chronic (8) Hyperammonemia Priority: Secondary Status: Chronic (9) Tobacco abuse Priority: Secondary Status: Chronic (10) Hepatitis C Priority: Secondary Status: Chronic Qualifiers: Viral hepatitis chronicity: chronic Hepatic coma status: without hepatic coma Qualified Code(s): B18.2 - Chronic viral hepatitis C (11) Hypertension Priority: Secondary Status: Chronic Qualifiers: Hypertension type: essential hypertension Qualified Code(s): I10 - Essential (primary) hypertension (12) Leukopenia Priority: Secondary Status: Acute Qualifiers: Leukopenia type: other Qualified Code(s): D72.818 - Other decreased white blood cell count Hospital course: Ms. Kilgore is a 33 year old female who presented to ED for inpatient drug rehab. Ms Kilgore was placed in observation on med tele. She was continued on her meds and seen by MATTHIAS. Arrangements were made for her to go to inpatient rehab Sunday but she opted to leave AMA. She had issues with somnolence while here and meds were held. - Time Spent with Patient Total time spent providing and/or coordinating discharge services: 28min - Discharge Medications Prescriptions: No Action Lisinopril [Zestril] 10 mg PO DAILY 14 Days #14 tablet Quetiapine Fumarate [Seroquel] 200 mg PO HS 14 Days #14 tablet Methadone 70 mg PO DAILY risperiDONE [RisperDAL] 0.5 mg PO BID Gabapentin 800 mg PO TID Sertraline [Zoloft] 100 mg PO DAILY Home Medications: Lisinopril [Zestril] 10 mg PO DAILY 14 Days #14 tablet 06/07/18 [Rx] Quetiapine Fumarate [Seroquel] 200 mg PO HS 14 Days #14 tablet 06/07/18 [Rx] Methadone 70 mg PO DAILY 03/05/19 [History] risperiDONE [RisperDAL] 0.5 mg PO BID 03/05/19 [History] Gabapentin 800 mg PO TID 03/07/19 [History] Sertraline [Zoloft] 100 mg PO DAILY 03/07/19 [History] Allergies/Adverse Reactions: Allergy/AdvReac Type Severity Reaction Status Date / Time No Known Allergies Allergy Verified 05/31/18 21:47 Date of admission: 03/05/19 00:52 Primary care physician: PCP NONE Consults: 03/05/19 03:08 Consult to [facility] [CONS] Routine Reason for SW Consult: Homeless Discharging clinician: Wil Carmona Anticipated date of discharge: 03/09/19 - Constitutional Vitals: Temp Pulse Resp BP Pulse Ox 98.0 F 56 17 118/70 94 03/09/19 11:54 03/09/19 11:54 03/09/19 11:54 03/09/19 11:54 03/09/19 11:54 General appearance: Present: A&O X 3 Exam: See below - Head Head exam: Present: normocephalic - Eye Eye exam: Present: EOMI, conjuntiva pink - ENT ENT exam: Present: mucous membranes moist - Respiratory Respiratory exam: Present: CTAB. Absent: rales, rhonchi, wheezes - Cardiovascular Cardiovascular exam: Present: RRR. Absent: tachycardia - GI/Abdominal GI/Abdominal exam: Present: normal bowel sounds, soft - Extremities Exam Extremities exam: Present: warm. Absent: tenderness - Neurological Exam Neurological exam: Present: alert, oriented X3 - Skin Skin exam: Present: dry, warm - Patient Status Disposition: Left Against Medical Advice Condition: Fair Functional capacity at discharge: independent ambulation Overall status at discharge: patient is progressing back to baseline - Discharge Instructions Follow Up With: Iliana Grijalva DO [Resident] - 03/14/19 10:40 am - Diet and Activity Activity: increase activity as tolerated Diet: advance to your usual diet
== END 2019-03-09 15:11 | disposition left against medical advice (07) ==
LOC: 3BNU 16:51 → EMEROOARM 16:51 → SUATTDRO 03-05 00:52 → 3BNU 03-05 01:20
PROVIDERS: ADMIT Internal Medicine; ATTEND Internal Medicine

== ENCOUNTER 2020-08-31 12:27 | Observation (INO) ==
[2020-08-31 15:14] LABS: Monocytes % 8.2 %
[2020-08-31 15:16] LABS: Basophils # 0.1 K/mcL (0.0-0.2); Basophils % 0.7 %; Eosinophils # 0.1 K/mcL (0.0-0.6); Hematocrit 42.9 % (35.3-44.9); Hemoglobin 14.1 g/dL (11.5-15.4); Immature Granulocytes % 0.2 % (0-4); Immature Platelets 23.5 % (1.1-6.1); Lymphocytes # 2.2 K/mcL (0.6-4.6); Lymphocytes % 24.8 %; Mean Corpuscular HGB Conc 32.9 g/dL (31.6-35.5); Mean Corpuscular Hemoglobin 31.2 pg (28.0-33.3); Mean Corpuscular Volume 94.9 fL (83.0-100.0); Mean Platelet Volume 14.2 fL (9.4-12.4); Monocytes # 0.7 K/mcL (0.0-1.3); Neutrophils # 5.7 K/mcL (1.6-8.9); Red Blood Count 4.52 M/mcL (3.82-4.97); Red Cell Distribution Width 12.8 % (11.5-14.5); Segmented Neutrophils % 65.1 %; White Blood Count 8.7 K/mcL (4.3-11.1)
[2020-08-31 15:21] LABS: Platelet Count 84 K/mcL (140-400)
[2020-08-31 15:28] LABS: Acetaminophen < 10 mcg/mL (10-20); Alanine Aminotransferase 93 Units/L (7-52); Albumin 3.9 g/dL (3.5-5.7); Albumin/Globulin Ratio 1.2 (1.1-2.2); Alkaline Phosphatase 106 Units/L (34-104); Aspartate Amino Transferase 138 Units/L (13-39); BUN/Creatinine Ratio 36 (6-26); Bilirubin,Total 2.5 mg/dL (0.3-1.0); Blood Urea Nitrogen 20 mg/dL (6-20); Calcium 9.3 mg/dL (8.6-10.3); Carbon Dioxide 27 mEq/L (23-29); Chloride 100 mEq/L (98-107); Ethanol < 10 mg/dL (Less than 10); Globulin 3.2 g/dL (2.4-3.5); Glucose 127 mg/dL (70-105); Osmolality,Calculated 284 (280-300); Potassium 3.8 mEq/L (3.5-5.1); Salicylate < 2.5 mg/dL (15.0-30.0); Sodium 135 mEq/L (136-145); Total Protein 7.1 g/dL (6.4-8.9); eGFR For African Americans > 60 (> 60); eGFR For Non-African Americans > 60 (> 60)
[2020-08-31] MEDS ORDERED: Isovue-370 500 ML BOTTLE IVP ONE (15:34)
[2020-08-31 16:25] LABS: Hepatitis B Surface Antigen Nonreactive (Nonreactive)
[2020-08-31 16:55] LABS: Hepatitis B Core IgM Nonreactive (Nonreactive)
[2020-08-31 16:56] LABS: Hepatitis A Antibody IgM Nonreactive (Nonreactive)
[2020-08-31 17:07] LABS: INR 1.3; Prothrombin Time 14.6 Seconds (9.4-12.1)
[2020-08-31 17:09] LABS: Activated Partial Thrombo Time 34.2 Seconds (26.0-36.0)
[2020-08-31 18:33] LABS: Hepatitis C Virus Antibody Reactive (Nonreactive)
[2020-08-31 18:45] LABS: Amphetamine Screen,Urine Positive ng/mL (Cutoff=1000); Barbiturate Screen,Urine Negative ng/mL (Cutoff=200); Benzodiazepines Screen,Urine Negative ng/mL (Cutoff=200); Cannabinoid Screen,Urine Positive ng/mL (Cutoff = 50); Cocaine Screen,Urine Negative ng/mL (Cutoff= 300); Opiate Screen,Urine Negative ng/mL (Cutoff=300); Phencyclidine Screen,Urine Negative ng/mL (Cutoff=25)
[2020-08-31 19:15] LABS: Lipase 22 Units/L (11-82)
[2020-08-31] MEDS ORDERED: Naloxone 0.4 MG/ML INJ IVP PRN (20:56)
[2020-08-31] MEDS ORDERED: 0.9 % Sodium Chloride 1,000 ML IVC SCH (21:00)
[2020-09-01] MEDS ORDERED: Nicotine 7 MG PATCH.TD24 TD STA (01:05)
[2020-09-01 01:24] LABS: Bilirubin,Direct 1.4 mg/dL (0.0-0.2); Bilirubin,Indirect 1.1 mg/dL (0.0-1.0)
[2020-09-01] MEDS ORDERED: Perflutren Lipid Microsphere 1.3 ML in 0.9 % Sodium Chloride 8.7 ML IVP PRN (05:31)
[2020-09-01 06:10] LABS: INR 1.3; Prothrombin Time 14.2 Seconds (9.4-12.1)
[2020-09-01 06:11] LABS: Activated Partial Thrombo Time 33.4 Seconds (26.0-36.0)
[2020-09-01] MEDS: *HR* Heparin 5,000 UNIT/ML VIAL SQ SCH ×2 (06:22→18:08)
[2020-09-01 06:33] LABS: Chol/HDL Ratio 3.3 (0-4.9); Cholesterol 90 mg/dL (< 200); HDL Cholesterol 27 mg/dL (40-59); LDL Cholesterol,Calculated 53 mg/dL (< 100); Triglycerides 52 mg/dL (< 150); Troponin I < 0.03 ng/mL (< 0.04)
[2020-09-01 08:46] LABS: Basophils # 0.1 K/mcL (0.0-0.2); Basophils % 0.8 %; Eosinophils # 0.2 K/mcL (0.0-0.6); Eosinophils % 2.7 %; Hematocrit 43.6 % (35.3-44.9); Hemoglobin 14.5 g/dL (11.5-15.4); Immature Granulocytes % 0.2 % (0-4); Immature Platelets 25.2 % (1.1-6.1); Lymphocytes # 2.9 K/mcL (0.6-4.6); Lymphocytes % 43.5 %; Mean Corpuscular HGB Conc 33.3 g/dL (31.6-35.5); Mean Corpuscular Hemoglobin 31.4 pg (28.0-33.3); Mean Corpuscular Volume 94.4 fL (83.0-100.0); Mean Platelet Volume 14.5 fL (9.4-12.4); Monocytes # 0.5 K/mcL (0.0-1.3); Monocytes % 7.3 %; Red Blood Count 4.62 M/mcL (3.82-4.97); Segmented Neutrophils % 45.5 %; White Blood Count 6.6 K/mcL (4.3-11.1)
[2020-09-01 08:47] LABS: Platelet Count 84 K/mcL (140-400)
[2020-09-01 08:57] LABS: Alanine Aminotransferase 102 Units/L (7-52); Albumin 3.9 g/dL (3.5-5.7); Albumin/Globulin Ratio 1.3 (1.1-2.2); Alkaline Phosphatase 111 Units/L (34-104); Aspartate Amino Transferase 151 Units/L (13-39); BUN/Creatinine Ratio 25 (6-26); Bilirubin,Total 2.3 mg/dL (0.3-1.0); Blood Urea Nitrogen 13 mg/dL (6-20); Calcium 9.1 mg/dL (8.6-10.3); Carbon Dioxide 25 mEq/L (23-29); Chloride 103 mEq/L (98-107); Globulin 3.1 g/dL (2.4-3.5); Glucose 122 mg/dL (70-105); Osmolality,Calculated 289 (280-300); Potassium 3.8 mEq/L (3.5-5.1); Sodium 139 mEq/L (136-145); eGFR For African Americans > 60 (> 60); eGFR For Non-African Americans > 60 (> 60)
[2020-09-01 15:06] LABS: % Iron Saturation 36 % (15-50); Iron 121 mcg/dL (50-170); Transferrin 238 mg/dL (203-362)
[2020-09-01] MEDS ORDERED: *HR* LORazepam 2 MG/ML VIAL IVP PRN (17:35)
[2020-09-01] MEDS ORDERED: QUEtiapine Fumarate 100 MG TABLET PO SCH (21:00)
[2020-09-01] MEDS: 0.9 % Sodium Chloride 1,000 ML IVC SCH (22:54)
[2020-09-02 03:51] LABS: Segmented Neutrophils % 41.3 %
[2020-09-02 03:53] LABS: Basophils % 0.7 %; Eosinophils # 0.1 K/mcL (0.0-0.6); Eosinophils % 3.2 %; Hemoglobin 12.6 g/dL (11.5-15.4); Lymphocytes % 47.9 %; Mean Corpuscular HGB Conc 34.1 g/dL (31.6-35.5); Mean Corpuscular Hemoglobin 32.1 pg (28.0-33.3); Mean Corpuscular Volume 94.4 fL (83.0-100.0); Mean Platelet Volume 13.8 fL (9.4-12.4); Monocytes # 0.3 K/mcL (0.0-1.3); Monocytes % 6.9 %; Neutrophils # 1.7 K/mcL (1.6-8.9); Red Blood Count 3.92 M/mcL (3.82-4.97); White Blood Count 4.1 K/mcL (4.3-11.1)
[2020-09-02 04:01] LABS: Platelet Count 78 K/mcL (140-400)
[2020-09-02 04:10] LABS: BUN/Creatinine Ratio 16 (6-26); Blood Urea Nitrogen 7 mg/dL (6-20); Calcium 8.6 mg/dL (8.6-10.3); Carbon Dioxide 28 mEq/L (23-29); Chloride 103 mEq/L (98-107); Glucose 133 mg/dL (70-105); Osmolality,Calculated 286 (280-300); Potassium 3.4 mEq/L (3.5-5.1); Sodium 138 mEq/L (136-145); eGFR For African Americans > 60 (> 60); eGFR For Non-African Americans > 60 (> 60)
[2020-09-02] MEDS: *HR* Heparin 5,000 UNIT/ML VIAL SQ SCH ×2 (05:00→16:48)
[2020-09-02] MEDS ORDERED: Nicotine 21 MG PATCH.TD24 TD SCH (05:08)
[2020-09-02] MEDS: 0.9 % Sodium Chloride 1,000 ML IVC SCH (12:43)
[2020-09-02 15:12] VITALS: BP 114/64
[2020-09-04 15:25] LABS: AFP Tumor Marker Non-Pregnant 26 ng/mL (0-9)
== END 2020-09-02 18:55 | disposition home or self-care (01) ==
LOC: EMEROOARM 12:27 → 3ANU 12:27 → SUATTDRO 19:00 → 3ANU 19:53
PROVIDERS: ADMIT Internal Medicine; ATTEND Student in an Organized Health Care Education/Training Program